=== PATIENT | male | born 1930 | race Caucasian/White ===

== ENCOUNTER 2017-03-02 22:14 | Inpatient (IN) | payer MEDICARE, OTHER, MEDICAID ==
[2017-03-02] MEDS ORDERED: Sodium Chloride 0.9% 10 ML Syringe FLUSH PRN (22:21)
[2017-03-02] MEDS ORDERED: Sodium Chloride 0.9% 1,000 ML IV SCH (22:30)
[2017-03-02] MEDS ORDERED: Levofloxacin/Dextrose 5%-Water 750 MG in Premix Bag 1 BAG IV ONE (22:31)
[2017-03-03] MEDS ORDERED: Acetaminophen 325 MG Tab PO ONE (00:03)
--- NOTE | 2017-03-03 00:04 | EDM.PDOC ---
ED HPI GENERAL MEDICAL PROBLEM - General Chief Complaint: Fever Stated Complaint: [facility] Time Seen by Provider: 03/02/17 22:17 Source of Information: Reports: [facility] records, Provider History Limitations: Reports: Altered Mental Status - History of Present Illness INITIAL COMMENTS - FREE TEXT/NARRATIVE: The patient presents from the [facility] with fever, cough, shortness of breath and low oxygen saturations. The [facility] had an outbreak of influenza last week and he was on tamiflu. For a couple days he has been more short of breath. 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 This evening he developed more of a cough, shortness of breath and his fever was 101. He was sent by ambulance. The patient is sleepy and he does not answer my questions. Onset: gradual Duration: Day(s): Severity: moderate Improves with: Reports: None Worsens with: Reports: None Associated Symptoms: Reports: cough, fever/chills, shortness of breath. 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 - Related Data Allergies Allergy/AdvReac Type Severity Reaction Status Date / Time No Known Allergies Allergy Verified 03/02/17 22:48 Home Meds: Home Meds Acetaminophen [Tylenol] 650 mg PO DAILY PRN 05/29/14 [History] Aspirin [Ecotrin] 1 tab PO DAILY 05/29/14 [History] Lovastatin 40 mg PO BEDTIME 05/29/14 [History] Sertraline [Zoloft] 12.5 tab PO DAILY 05/29/14 [History] Tamsulosin [Flomax] 0.4 mg PO BEDTIME 05/29/14 [History] Ammonia Solution, Strong/MSM [Penetran + Plus 1.5%] 1 applic TOP BID PRN [History] Cranberry Extract [Cranberry] 1 tab PO BID 03/02/17 [History] Furosemide [Lasix] 20 mg PO BID 03/02/17 [History] Memantine HCl [Namenda XR] 14 mg PO DAILY 03/02/17 [History] Oseltamivir [Tamiflu] 75 mg PO DAILY 03/02/17 [History] Sennosides [Senna] 2 tab PO DAILY PRN 03/02/17 [History] Past Medical History HEENT History: Reports: Cataract Cardiovascular History: Reports: High cholesterol, Hypertension Gastrointestinal History: Reports: Chronic constipation, Diverticulosis, GERD Psychiatric History: Reports: Anxiety, Dementia, Other (see below) Other Psychiatric History: insomnia Social & Family History - Tobacco Use Smoking Status *Q: Unknown Ever Smoked Second Hand Smoke Exposure: No - Alcohol Use Days Per Week of Alcohol Use: 0 - Recreational Drug Use Recreational Drug Use: No - Living Situation & Occupation Living situation: Reports: extended care facility ED ROS GENERAL - Review of Systems Review Of Systems: Unable To Obtain ED EXAM, GENERAL - Physical Exam Exam: See Below Exam Limited By: Altered Mental Status General Appearance: Other (He is sleepy) Ears: Normal External Exam Nose: Normal Inspection Throat/Mouth: Other (Dry mucus membranes) Head: Atraumatic, Normocephalic Neck: Normal Inspection Respiratory/Chest: No Respiratory Distress, Decreased Breath Sounds, Rhonchi Cardiovascular: Regular Rate, Rhythm, No Edema, No Murmur GI/Abdominal: Soft, Non-Tender, No Organomegaly, No Mass Extremities: Normal Inspection Neurological: Other (Sleepy but he will open his eyes when I talk to him. ) Course - Vital Signs Last Recorded V/S: Last Vital Signs Temp 102.6 F H 03/02/17 22:39 Pulse 89 03/02/17 22:39 Resp 36 H 03/02/17 22:39 BP 111/82 03/02/17 22:39 Pulse Ox 90 L 03/02/17 22:39 - Orders/Labs/Meds Orders: Active Orders 24 hr Category Date Time Status Patient Status [ADT] Routine ADT 03/03/17 00:23 Ordered Cardiac Monitoring [RC] . DIRECTED Care 03/02/17 22:22 Active Oxygen Therapy [RC] PRN Care 03/02/17 22:22 Active Peripheral IV Care [RC] . DIRECTED Care 03/02/17 22:23 Active Chest 1V Frontal [CR] Stat Exams 03/02/17 22:29 Taken CULTURE BLOOD [BC] Stat Lab 03/02/17 22:40 Received CULTURE BLOOD [BC] Stat Lab 03/02/17 22:55 Received Sodium Chloride 0.9% [Normal Saline] 1,000 ml Med 03/02/17 22:30 Active IV .BOLUS Sodium Chloride 0.9% [Saline Flush] Med 03/02/17 22:21 Active 10 ml FLUSH ASDIRECTED PRN Blood Culture x2 Reflex Set [OM.PC] Stat Ot 03/02/17 22:31 Ordered Peripheral IV Insertion Adult [OM.PC] Stat Ot 03/02/17 22:21 Ordered Medication Orders Sodium Chloride (Normal Saline) 1,000 mls @ 1,000 mls/hr IV .BOLUS CAROLYN Last Admin: 03/02/17 23:07 Dose: 1,000 mls/hr Sodium Chloride (Saline Flush) 10 ml FLUSH ASDIRECTED PRN PRN Reason: Keep Vein Open Last Admin: 03/02/17 23:14 Dose: 10 ml Labs: Laboratory Tests 03/02/17 03/02/17 03/02/17 Range/Units 22:36 22:40 22:40 WBC 9.50 H (4.23-9.07) K/mm3 RBC 5.16 (4.63-6.08) M/mm3 Hgb 14.6 (13.7-17.5) gm/L Hct 45.6 (40.1-51.0) % MCV 88.4 (79.0-92.2) fl MCH 28.3 (25.7-32.2) pg MCHC 32.0 L (32.2-35.5) g/dl RDW Std Deviation 44.0 H (35.1-43.9) fL Plt Count 97 L (163-337) K/mm3 MPV 12.2 (9.4-12.3) fl Neut % (Auto) 69.1 H (34.0-67.9) % Lymph % (Auto) 19.5 L (21.8-53.1) % Patrick % (Auto) 10.2 (5.3-12.2) % Eos % (Auto) 0.6 L (0.8-7.0) Baso % (Auto) 0.5 (0.1-1.2) % Neut # (Auto) 6.56 H (1.78-5.38) K/mm3 Lymph # (Auto) 1.85 (1.32-3.57) K/mm3 Patrick # (Auto) 0.97 H (0.30-0.82) K/mm3 Eos # (Auto) 0.06 (0.04-0.54) K/mm3 Baso # (Auto) 0.05 (0.01-0.08) K/mm3 Manual Slide Review Abnormal smear Sodium 156 H (136-145) mEq/L Potassium 4.0 (3.5-5.1) mEq/L Chloride 121 H (98-107) mEq/L Carbon Dioxide 25 (21-32) mEq/L Anion Gap 14.0 (5-15) BUN 34 H (7-18) mg/dL Creatinine 1.3 (0.7-1.3) mg/dL Est Cr Clr Drug Dosing TNP Estimated GFR (MDRD) 53 (>60) mL/min BUN/Creatinine Ratio 26.2 H (14-18) Glucose 274 H (83-115) mg/dL Lactic Acid (0.4-2.0) mmol/L Calcium 8.0 L (8.5-10.1) mg/dL Total Bilirubin 0.6 (0.2-1.0) mg/dL AST 21 (15-37) U/L ALT 31 (16-63) U/L Alkaline Phosphatase 53 (46-116) U/L Total Protein 6.9 (6.4-8.2) g/dl Albumin 3.1 L (3.4-5.0) g/dl Globulin 3.8 gm/dL Albumin/Globulin Ratio 0.8 L (1-2) Urine Color Yellow (Yellow) Urine Appearance Clear (Clear) Urine pH 5.5 (5.0-8.0) Ur Specific [place] > or = 1.030 (1.005-1.030) Urine Protein 2+ H (Negative) Urine Glucose (UA) Trace H (Negative) Urine Ketones Negative (Negative) Urine Occult Blood Trace-lysed H (Negative) Urine Nitrite Negative (Negative) Urine Bilirubin Negative (Negative) Urine Urobilinogen 0.2 (0.2-1.0) Ur Leukocyte Esterase Negative (Negative) Urine RBC Not seen (0-5) /hpf Urine WBC 0-5 (0-5) /hpf Ur Epithelial Cells Not seen (0-5) /hpf Urine Bacteria Few (FEW) /hpf Urine Mucus Few (FEW) /hpf 03/02/17 Range/Units 22:40 WBC (4.23-9.07) K/mm3 RBC (4.63-6.08) M/mm3 Hgb (13.7-17.5) gm/L Hct (40.1-51.0) % MCV (79.0-92.2) fl MCH (25.7-32.2) pg MCHC (32.2-35.5) g/dl RDW Std Deviation (35.1-43.9) fL Plt Count (163-337) K/mm3 MPV (9.4-12.3) fl Neut % (Auto) (34.0-67.9) % Lymph % (Auto) (21.8-53.1) % Patrick % (Auto) (5.3-12.2) % Eos % (Auto) (0.8-7.0) Baso % (Auto) (0.1-1.2) % Neut # (Auto) (1.78-5.38) K/mm3 Lymph # (Auto) (1.32-3.57) K/mm3 Patrick # (Auto) (0.30-0.82) K/mm3 Eos # (Auto) (0.04-0.54) K/mm3 Baso # (Auto) (0.01-0.08) K/mm3 Manual Slide Review Sodium (136-145) mEq/L Potassium (3.5-5.1) mEq/L Chloride (98-107) mEq/L Carbon Dioxide (21-32) mEq/L Anion Gap (5-15) BUN (7-18) mg/dL Creatinine (0.7-1.3) mg/dL Est Cr Clr Drug Dosing Estimated GFR (MDRD) (>60) mL/min BUN/Creatinine Ratio (14-18) Glucose (83-115) mg/dL Lactic Acid 1.6 (0.4-2.0) mmol/L Calcium (8.5-10.1) mg/dL Total Bilirubin (0.2-1.0) mg/dL AST (15-37) U/L ALT (16-63) U/L Alkaline Phosphatase (46-116) U/L Total Protein (6.4-8.2) g/dl Albumin (3.4-5.0) g/dl Globulin gm/dL Albumin/Globulin Ratio (1-2) Urine Color (Yellow) Urine Appearance (Clear) Urine pH (5.0-8.0) Ur Specific [place] (1.005-1.030) Urine Protein (Negative) Urine Glucose (UA) (Negative) Urine Ketones (Negative) Urine Occult Blood (Negative) Urine Nitrite (Negative) Urine Bilirubin (Negative) Urine Urobilinogen (0.2-1.0) Ur Leukocyte Esterase (Negative) Urine RBC (0-5) /hpf Urine WBC (0-5) /hpf Ur Epithelial Cells (0-5) /hpf Urine Bacteria (FEW) /hpf Urine Mucus (FEW) /hpf Meds: Medications Generic Name Dose Route Start Last Admin Trade Name Freq PRN Reason Stop Dose Admin Sodium Chloride 1,000 mls @ 1,000 mls/hr 03/02/17 22:30 03/02/17 23:07 Normal Saline IV 1,000 mls/hr .BOLUS CAROLYN Administration Sodium Chloride 10 ml 03/02/17 22:21 03/02/17 23:14 Saline Flush FLUSH 10 ml ASDIRECTED PRN Administration Keep Vein Open Discontinued Medications Generic Name Dose Route Start Last Admin Trade Name Freq PRN Reason Stop Dose Admin Acetaminophen 975 mg 03/03/17 00:03 Tylenol PO 03/03/17 00:04 NOW ONE Levofloxacin/Dextrose 750 mg/ 150 mls @ 100 mls/hr 03/02/17 22:31 03/02/17 23 :07 Premix IV 03/03/17 00:00 100 mls/hr ONETIME ONE Administration - Re-Assessments/Exams Free Text/Narrative Re-Assessment/Exam: 03/03/17 00:04 I ordered an IV NS 500ml bolus, CXR, labs, blood cultures, UA and levaquin 750mg IV after the blood cultures. 03/03/17 00:24 His WBC is slightly elevated at 9.5. His CXR does not show an infiltrate at this time. His Na is 156. His K was normal at 4. His creatinine was normal at 1.3. His glucose was elevated at 274. His UA shows no UTI. His influenza was negative. I have blood cultures ordered. I feel he has pneumonia with his cough, fever, and low oxygen saturations. He also has sepsis. I called Dr Maguire and she agreed to the admission. 03/03/17 00:27 I ordered some tylenol for his fever. Departure - Departure Time of Disposition: 00:30 Disposition: Admitted As Inpatient 68 Condition: serious Clinical Impression: Hypoxia, Hypernatremia Pneumonia Qualifiers: Pneumonia type: due to unspecified organism Laterality: unspecified laterality Lung location: unspecified part of lung Qualified Code(s): J18.9 - Pneumonia, unspecified organism Sepsis Qualifiers: Sepsis type: sepsis due to unspecified organism Qualified Code(s): A41.9 - Sepsis, unspecified organism - Discharge Information Forms: ED Department Discharge - My Orders Last 24 Hours: My Active Orders 03/02/17 22:21 Sodium Chloride 0.9% [Saline Flush] 10 ml FLUSH ASDIRECTED PRN Peripheral IV Insertion Adult [OM.PC] Stat 03/02/17 22:22 Cardiac Monitoring [RC] . DIRECTED Oxygen Therapy [RC] PRN 03/02/17 22:23 Peripheral IV Care [RC] . DIRECTED 03/02/17 22:29 Chest 1V Frontal [CR] Stat 03/02/17 22:30 Sodium Chloride 0.9% [Normal Saline] 1,000 ml IV .BOLUS 03/02/17 22:31 Blood Culture x2 Reflex Set [OM.PC] Stat 03/02/17 22:40 CULTURE BLOOD [BC] Stat 03/02/17 22:55 CULTURE BLOOD [BC] Stat 03/03/17 00:23 Patient Status [ADT] Routine - Assessment/Plan Last 24 Hours: My Active Orders 03/02/17 22:21 Sodium Chloride 0.9% [Saline Flush] 10 ml FLUSH ASDIRECTED PRN Peripheral IV Insertion Adult [OM.PC] Stat 03/02/17 22:22 Cardiac Monitoring [RC] . DIRECTED Oxygen Therapy [RC] PRN 03/02/17 22:23 Peripheral IV Care [RC] . DIRECTED 03/02/17 22:29 Chest 1V Frontal [CR] Stat 03/02/17 22:30 Sodium Chloride 0.9% [Normal Saline] 1,000 ml IV .BOLUS 03/02/17 22:31 Blood Culture x2 Reflex Set [OM.PC] Stat 03/02/17 22:40 CULTURE BLOOD [BC] Stat 03/02/17 22:55 CULTURE BLOOD [BC] Stat 03/03/17 00:23 Patient Status [ADT] Routine
[2017-03-03] MEDS ORDERED: Acetaminophen 325 MG Supp RECTAL STA (00:25)
[2017-03-03] MEDS ORDERED: Sodium Chloride 0.9% 1,000 ML IV SCH (00:30)
[2017-03-03] MEDS: Dextrose 5% in Water 1,000 ML IV SCH ×3 (02:52→23:46)
[2017-03-03] MEDS: Albuterol/Ipratropium 3.0-0.5 MG/3 ML Neb Soln NEB SCH ×4 (06:21→20:24)
--- NOTE | 2017-03-03 07:02 | CR ---
Chest: Portable view of the chest was obtained. Comparison: Previous chest x-ray of 10/27/14. Heart size appears within normal limits. Tortuous thoracic aorta is noted. Mild density is noted within the left mid to lower lung believed to represent pleural thickening/calcification seen en face. No acute infiltrates are seen. Old healed left mid to lower rib fracture is noted. Impression: 1. Incidental findings. Nothing acute is identified on portable chest x-ray. Diagnostic code #2
[2017-03-03] MEDS: Enoxaparin 40 MG/0.4 ML Syringe SUBCUT SCH (09:00)
[2017-03-03] MEDS: Oseltamivir 30 MG Cap PO SCH (09:01)
--- NOTE | 2017-03-03 13:18 | PCM.HP ---
H&P History of Present Illness - General Date of Service: 03/03/17 Admit Problem/Dx: Admission Diagnosis/Problem Admission Diagnosis/Problem Pneumonia Source of Information: Provider History Limitations: Reports: No Limitations - History of Present Illness Initial Comments - Free Text/Narative: 86 year old male, [place] resident presents lethargic, and febrile. Temp was 102.6F , pulse ox 90%; UA documented a sp gr, 1.030 without nitrites or LE. Additional abnormal labs include a sodium of 156. D% has been started for free water, the patient is hyperglycemic, however this would document his glucose intolerance; he had trace glucose in his UA before imitation of his glucose. An empiric dose of Levoquin was given for possible PNA. Onset of Symptoms: Reports: Unknown/Unsure Duration of Symptoms: Reports: Day(s):, Getting Worse Location: Reports: Chest, Generalized Severity: Moderate Improves with: Reports: Medication Worsens with: Reports: None Context: Reports: Sick Contact Associated Symptoms: Reports: Confusion, Fever/Chills, Malaise - Related Data Allergies/Adverse Reactions: Allergies Allergy/AdvReac Type Severity Reaction Status Date / Time No Known Allergies Allergy Verified 03/02/17 22:48 Home Medications: Home Meds Acetaminophen [Tylenol] 650 mg PO DAILY PRN 05/29/14 [History] Aspirin [Ecotrin] 1 tab PO DAILY 05/29/14 [History] Lovastatin 40 mg PO BEDTIME 05/29/14 [History] Sertraline [Zoloft] 12.5 tab PO DAILY 05/29/14 [History] Tamsulosin [Flomax] 0.4 mg PO BEDTIME 05/29/14 [History] Ammonia Solution, Strong/MSM [Penetran + Plus 1.5%] 1 applic TOP BID PRN [History] Cranberry Extract [Cranberry] 1 tab PO BID 03/02/17 [History] Furosemide [Lasix] 20 mg PO BID 03/02/17 [History] Memantine HCl [Namenda XR] 14 mg PO DAILY 03/02/17 [History] Oseltamivir [Tamiflu] 75 mg PO DAILY 03/02/17 [History] Sennosides [Senna] 2 tab PO DAILY PRN 03/02/17 [History] Past Medical History HEENT History: Reports: Cataract Cardiovascular History: Reports: High Cholesterol, Hypertension Gastrointestinal History: Reports: Chronic Constipation, Diverticulosis, GERD Genitourinary History: Reports: Other (See Below) Other Genitourinary History: urinary obstruction Neurological History: Reports: Other (See Below) Other Neuro History: dementia Psychiatric History: Reports: Anxiety, Dementia, Other (See Below) Other Psychiatric History: insomnia 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 Social & Family History - Family History Family Medical History: Noncontributory - Tobacco Use Smoking Status *Q: Unknown Ever Smoked Second Hand Smoke Exposure: No - Alcohol Use Days Per Week of Alcohol Use: 0 - Recreational Drug Use Recreational Drug Use: No - Living Situation & Occupation Living situation: Reports: Extended Care Facility H&P Review of Systems - Review of Systems: Review Of Systems: See Below General: Reports: Fever, Malaise, Weakness HEENT: Reports: No Symptoms Pulmonary: Reports: Shortness of Breath Cardiovascular: Reports: No Symptoms Gastrointestinal: Reports: No Symptoms Genitourinary: Reports: No Symptoms Musculoskeletal: Reports: No Symptoms Skin: Reports: No Symptoms Psychiatric: Reports: Confusion Neurological: Reports: No Symptoms Hematologic/Lymphatic: Reports: No Symptoms Immunologic: Reports: No Symptoms Exam - Exam Exam: See Below - Vital Signs Vital Signs: Last Vital Signs Temp 36.5 C 03/03/17 09:00 Pulse 81 03/03/17 09:00 Resp 28 H 03/03/17 09:00 BP 142/68 H 03/03/17 09:00 Pulse Ox 96 03/03/17 09:00 Weight: 56.835 kg - Exam Quality Assessment: Supplemental Oxygen, DVT Prophylaxis General: Alert, Oriented (self) HEENT: Conjunctiva Clear, Nares Patent, Normal Nasal Septum, Pupils Equal, Pupils Reactive Neck: Supple, Trachea Midline Lungs: Normal Respiratory Effort, Decreased Breath Sounds, Rhonchi Cardiovascular: Regular Rate Abdomen: Normal Bowel Sounds, Soft (Male) Exam: Deferred Rectal (Males) Exam: Deferred Back Exam: Normal Inspection Extremities: Normal Pulses Skin: Warm Neurological: Cranial Nerves Intact Neuro Extensive - Mental Status: Alert, Normal Mood/Affect Neuro Extensive - Motor, Sensory, Reflexes: CN II-XII Intact Psychiatric: Alert - Patient Data Lab Results last 24 hrs: Laboratory Results - last 24 hr 03/03/17 03/03/17 03/03/17 Range/Units 04:03 04:03 04:03 WBC 9.11 H (4.23-9.07) K/mm3 RBC 5.04 (4.63-6.08) M/mm3 Hgb 14.1 (13.7-17.5) gm/L Hct 44.7 (40.1-51.0) % MCV 88.7 (79.0-92.2) fl MCH 28.0 (25.7-32.2) pg MCHC 31.5 L (32.2-35.5) g/dl RDW Std Deviation 44.1 H (35.1-43.9) fL Plt Count 97 L (163-337) K/mm3 MPV 12.4 H (9.4-12.3) fl Neutrophils % (Manual) 69 H (40-60) % Band Neutrophils % 1 (0-10) % Lymphocytes % (Manual) 25 (20-40) % Atypical Lymphs % 0 % Monocytes % (Manual) 3 (2-10) % Eosinophils % (Manual) 1 (0.8-7.0) % Basophils % (Manual) 1 (0.2-1.2) Platelet Estimate See note RBC Morph Comment Normal Sodium 154 H (136-145) mEq/L Potassium 4.2 (3.5-5.1) mEq/L Chloride 121 H (98-107) mEq/L Carbon Dioxide 25 (21-32) mEq/L Anion Gap 12.2 (5-15) BUN 31 H (7-18) mg/dL Creatinine 1.1 (0.7-1.3) mg/dL Est Cr Clr Drug Dosing 40.19 mL/min Estimated GFR (MDRD) > 60 (>60) mL/min BUN/Creatinine Ratio 28.2 H (14-18) Glucose 313 H (83-115) mg/dL POC Glucose (83-110) mg/dL Hemoglobin A1c (4.50-6.20) % Calcium 7.7 L (8.5-10.1) mg/dL C-Reactive Protein 1.0 (<1.0) mg/dL B-Natriuretic Peptide 107 H (0-100) pg/mL MRSA (PCR) 03/03/17 03/03/17 03/03/17 Range/Units 04:03 04:30 11:45 WBC (4.23-9.07) K/mm3 RBC (4.63-6.08) M/mm3 Hgb (13.7-17.5) gm/L Hct (40.1-51.0) % MCV (79.0-92.2) fl MCH (25.7-32.2) pg MCHC (32.2-35.5) g/dl RDW Std Deviation (35.1-43.9) fL Plt Count (163-337) K/mm3 MPV (9.4-12.3) fl Neutrophils % (Manual) (40-60) % Band Neutrophils % (0-10) % Lymphocytes % (Manual) (20-40) % Atypical Lymphs % % Monocytes % (Manual) (2-10) % Eosinophils % (Manual) (0.8-7.0) % Basophils % (Manual) (0.2-1.2) Platelet Estimate RBC Morph Comment Sodium (136-145) mEq/L Potassium (3.5-5.1) mEq/L Chloride (98-107) mEq/L Carbon Dioxide (21-32) mEq/L Anion Gap (5-15) BUN (7-18) mg/dL Creatinine (0.7-1.3) mg/dL Est Cr Clr Drug Dosing mL/min Estimated GFR (MDRD) (>60) mL/min BUN/Creatinine Ratio (14-18) Glucose (83-115) mg/dL POC Glucose 289 H (83-110) mg/dL Hemoglobin A1c 9.10 H (4.50-6.20) % Calcium (8.5-10.1) mg/dL C-Reactive Protein (<1.0) mg/dL B-Natriuretic Peptide (0-100) pg/mL MRSA (PCR) Positive H Result Diagrams: 03/03/17 04:03 03/03/17 04:03 *Q Meaningful Use (ADM) - VTE *Q VTE Criteria *Q: - Stroke *Q Stroke Criteria *Q: - AMI *Q AMI Criteria *Q: - Problem List (1) Hypernatremia SNOMED Code(s): 38251454 ICD Code: E87.0 - HYPEROSMOLALITY AND HYPERNATREMIA Status: Acute Current Visit: Yes (2) Dehydration SNOMED Code(s): 88797903 ICD Code: E86.0 - DEHYDRATION Status: Acute Current Visit: No (3) Fever SNOMED Code(s): 416854899 ICD Code: R50.9 - FEVER, UNSPECIFIED Status: Acute Current Visit: No (4) Hypotension, Low blood pressure SNOMED Code(s): 86272133 ICD Code: I95.9 - HYPOTENSION, UNSPECIFIED Status: Acute Current Visit: No Problem List Initiated/Reviewed/Updated: Yes Orders Last 24hrs: Active Orders 24 hr Category Date Time Status Accu Check [Blood Glucose Check, Bedside] [] Q4HR Care 03/03/17 08:00 Active HOB [Head of Bed Elevation] [RC] ASDIRECTED Care 03/03/17 01:27 Active Oxygen Therapy [RC] ASDIRECTED Care 03/03/17 01:27 Active RT Aerosol Therapy [RC] ASDIRECTED Care 03/03/17 01:28 Active Consult to Speech Language Pathology [WELFARE CASE WORKER Evaluation Cons 03/03/17 01:25 Active and Treatment] [CONS] Routine NPO [Nothing Per Oral Diet] [DIET] Diet 03/03/17 Breakfast Active CBC W/O DIFF,HEMOGRAM [HEME] MOTH@0700 Lab 03/06/17 07:00 Ordered CBC W/O DIFF,HEMOGRAM [HEME] MOTH@0700 Lab 03/09/17 07:00 Ordered CBC W/O DIFF,HEMOGRAM [HEME] MOTH@0700 Lab 03/13/17 07:00 Ordered CBC W/O DIFF,HEMOGRAM [HEME] MOTH@0700 Lab 03/16/17 07:00 Ordered CBC W/O DIFF,HEMOGRAM [HEME] MOTH@0700 Lab 03/20/17 07:00 Ordered CBC W/O DIFF,HEMOGRAM [HEME] MOTH@0700 Lab 03/23/17 07:00 Ordered Albuterol/Ipratropium [DuoNeb 3.0-0.5 MG/3 ML] Med 03/03/17 06:00 Active 3 ml NEB QIDRT Azithromycin [Zithromax] 500 mg Med 03/03/17 13:30 Active Sodium Chloride 0.9% [Normal Saline] 250 ml IV Q24H Dextrose 5% in Water 1,000 ml Med 03/03/17 01:30 Active IV ASDIRECTED Enoxaparin [Lovenox] Med 03/03/17 09:00 Active 40 mg SUBCUT DAILY Oseltamivir [Tamiflu] Med 03/03/17 09:00 Active 30 mg PO DAILY cefTRIAXone [Rocephin] 1 gm Med 03/03/17 13:00 Active Sodium Chloride 0.9% [Normal Saline] 100 ml IV Q24H Medication Orders Albuterol/Ipratropium (Duoneb 3.0-0.5 Mg/3 Ml) 3 ml NEB QIDRT [facility] Last Admin: 03/03/17 10:49 Dose: 3 ml Admin: 03/03/17 06:21 Dose: 3 ml Enoxaparin Sodium (Lovenox) 40 mg SUBCUT DAILY [facility] Last Admin: 03/03/17 09:00 Dose: 40 mg Dextrose/Water (Dextrose 5% In Water) 1,000 mls @ 100 mls/hr IV ASDIRECTED [facility] Last Admin: 03/03/17 02:52 Dose: 100 mls/hr Azithromycin 500 mg/ Sodium (Chloride) 250 mls @ 250 mls/hr IV Q24H [facility] Ceftriaxone Sodium 1 gm/ (Sodium Chloride) 100 mls @ 200 mls/hr IV Q24H CAROLYN Oseltamivir Phosphate (Tamiflu) 30 mg PO DAILY [facility] Last Admin: 03/03/17 09:01 Dose: 30 mg Sodium Chloride (Saline Flush) 10 ml FLUSH ASDIRECTED PRN PRN Reason: Keep Vein Open Last Admin: 03/02/17 23:14 Dose: 10 ml Assessment/Plan Comment:: Impression: AMS, unclear etiology, likely hypernatremia cf infection; temp 102.6F in the ED. BCs have been drawn Can not exclude an infection Acute exposure to a viral illness in the NH. Chronic HTN Hyperlipidemia Anxiety Dementia Plan: IVF, D5 for free water Hold home meds Keep O2, Sat>92% Resp panel work up Empiric ATB, Zithromax, and Rocephin Renal dose Tamiflu DVT/GI prophylaxis
[2017-03-03] MEDS: cefTRIAXone 1 GM in Sodium Chloride 0.9% 100 ML IV SCH (13:28)
[2017-03-03] MEDS: Azithromycin 500 MG in Sodium Chloride 0.9% 250 ML IV SCH (14:18)
[2017-03-03] MEDS ORDERED: Bisacodyl 10 MG Supp RECTAL ONE (15:15)
[2017-03-03] MEDS ORDERED: Sennosides 8.6 MG Tab PO PRN (15:19)
[2017-03-03] MEDS: Tamsulosin 0.4 MG Cap.ER PO SCH (20:55)
[2017-03-04] MEDS: Albuterol/Ipratropium 3.0-0.5 MG/3 ML Neb Soln NEB SCH ×4 (06:18→20:30)
[2017-03-04] MEDS: Oseltamivir 30 MG Cap PO SCH (08:07)
[2017-03-04] MEDS: Sertraline 25 MG Tab PO SCH (08:07)
[2017-03-04] MEDS: MEMANTINE HCL 14 MG PO SCH (08:07)
[2017-03-04] MEDS: Saccharomyces Boulardii (Probiotic) 250 MG Cap PO SCH (08:07)
[2017-03-04] MEDS: Aspirin 81 MG Tab.EC PO SCH (08:07)
[2017-03-04] MEDS: Enoxaparin 40 MG/0.4 ML Syringe SUBCUT SCH (08:07)
[2017-03-04] MEDS: cefTRIAXone 1 GM in Sodium Chloride 0.9% 100 ML IV SCH (13:50)
[2017-03-04] MEDS: Azithromycin 500 MG in Sodium Chloride 0.9% 250 ML IV SCH (13:50)
--- NOTE | 2017-03-04 13:53 | PCM.PN ---
- General Info Date of Service: 03/04/17 Functional Status: Reports: tolerating diet (changed), urinating - Review of Systems General: Reports: No Symptoms HEENT: Reports: no symptoms Pulmonary: Reports: no symptoms Cardiovascular: Reports: No Symptoms Gastrointestinal: Reports: No symptoms Genitourinary: Reports: no symptoms Musculoskeletal: Reports: no symptoms Skin: Reports: no symptoms Neurological: Reports: No Symptoms Psychiatric: Reports: no symptoms - Patient Data Vitals - most recent: Last Vital Signs Temp 36.6 C 03/04/17 08:18 Pulse 87 03/04/17 08:18 Resp 20 03/04/17 08:18 BP 116/62 03/04/17 08:18 Pulse Ox 94 L 03/04/17 10:42 Weight - most recent: 57.878 kg I&O - last 24 hours: Intake & Output 03/03/17 03/04/17 03/04/17 22:59 06:59 14:59 Intake Total 1269 561 Balance 1269 561 Lab Results last 24 hrs: Laboratory Results - last 24 hr 03/03/17 03/03/17 03/03/17 Range/Units 16:56 19:05 19:05 Sodium 148 H (136-145) mEq/L Potassium 4.0 (3.5-5.1) mEq/L Chloride 113 H (98-107) mEq/L Carbon Dioxide 24 (21-32) mEq/L Anion Gap 15.0 (5-15) BUN 21 H (7-18) mg/dL Creatinine 1.0 (0.7-1.3) mg/dL Est Cr Clr Drug Dosing 44.21 mL/min Estimated GFR (MDRD) > 60 (>60) mL/min BUN/Creatinine Ratio 21.0 H (14-18) Glucose 321 H (83-115) mg/dL POC Glucose 239 H (83-110) mg/dL Hemoglobin A1c 9.10 H (4.50-6.20) % Calcium 7.6 L (8.5-10.1) mg/dL Magnesium (1.8-2.4) mg/dl Mycoplasma pneumon IgM Negative (NEGATIVE) 03/03/17 03/04/17 Range/Units 20:56 04:22 Sodium 145 (136-145) mEq/L Potassium 4.0 (3.5-5.1) mEq/L Chloride 111 H (98-107) mEq/L Carbon Dioxide 24 (21-32) mEq/L Anion Gap 14.0 (5-15) BUN 19 H (7-18) mg/dL Creatinine 1.0 (0.7-1.3) mg/dL Est Cr Clr Drug Dosing 45.02 mL/min Estimated GFR (MDRD) > 60 (>60) mL/min BUN/Creatinine Ratio 19.0 H (14-18) Glucose 296 H (83-115) mg/dL POC Glucose 296 H (83-110) mg/dL Hemoglobin A1c (4.50-6.20) % Calcium 7.8 L (8.5-10.1) mg/dL Magnesium 2.3 (1.8-2.4) mg/dl Mycoplasma pneumon IgM (NEGATIVE) Med Orders - Current: Current Medications Albuterol/Ipratropium (Duoneb 3.0-0.5 Mg/3 Ml) 3 ml NEB QIDRT [facility] Last Admin: 03/04/17 10:41 Dose: 3 ml Aspirin (Halfprin) 81 mg PO DAILY [facility] Last Admin: 03/04/17 08:07 Dose: 81 mg Enoxaparin Sodium (Lovenox) 40 mg SUBCUT DAILY [facility] Last Admin: 03/04/17 08:07 Dose: 40 mg Azithromycin 500 mg/ Sodium (Chloride) 250 mls @ 250 mls/hr IV Q24H [facility] Last Admin: 03/04/17 13:50 Dose: 250 mls/hr Ceftriaxone Sodium 1 gm/ (Sodium Chloride) 100 mls @ 200 mls/hr IV Q24H [facility] Last Admin: 03/04/17 13:50 Dose: 200 mls/hr Oseltamivir Phosphate (Tamiflu) 30 mg PO DAILY [facility] Last Admin: 03/04/17 08:07 Dose: 30 mg Memantine Hcl 14 Mg (Xr) 0 each PO DAILY [facility] Last Admin: 03/04/17 08:07 Dose: Not Given Saccharomyces Boulardii (Florastor) 500 mg PO DAILY [facility] Last Admin: 03/04/17 08:07 Dose: 500 mg Senna (Senna) 17.2 mg PO DAILY PRN PRN Reason: Constipation Sertraline HCl (Zoloft) 12.5 mg PO DAILY [facility] Last Admin: 03/04/17 08:07 Dose: 12.5 mg Sodium Chloride (Saline Flush) 10 ml FLUSH ASDIRECTED PRN PRN Reason: Keep Vein Open Last Admin: 03/02/17 23:14 Dose: 10 ml Tamsulosin HCl (Flomax) 0.4 mg PO BEDTIME [facility] Last Admin: 03/03/17 20:55 Dose: 0.4 mg Discontinued Medications Acetaminophen (Tylenol) 975 mg PO NOW ONE Stop: 03/03/17 00:04 Last Admin: 03/03/17 00:32 Dose: Not Given Acetaminophen (Tylenol) 975 mg RECTAL NOW STA Stop: 03/03/17 00:26 Last Admin: 03/03/17 00:31 Dose: 975 mg Bisacodyl (Dulcolax) 10 mg RECTAL ONETIME ONE Stop: 03/03/17 15:16 Last Admin: 03/03/17 15:28 Dose: 10 mg Levofloxacin/Dextrose 750 mg/ (Premix) 150 mls @ 100 mls/hr IV ONETIME ONE Stop: 03/03/17 00:00 Last Admin: 03/02/17 23:07 Dose: 100 mls/hr Sodium Chloride (Normal Saline) 1,000 mls @ 1,000 mls/hr IV .BOLUS [facility] Last Admin: 03/02/17 23:07 Dose: 1,000 mls/hr Sodium Chloride (Normal Saline) 1,000 mls @ 150 mls/hr IV ASDIRECTED CAROLYN Dextrose/Water (Dextrose 5% In Water) 1,000 mls @ 70 mls/hr IV ASDIRECTED [facility] Last Admin: 03/03/17 23:46 Dose: 100 mls/hr - Exam Quality Assessment: supplemental oxygen, DVT prophylaxis General: alert, oriented, cooperative, no acute distress HEENT: Pupils equal, Pupils reactive, EOMI Neck: supple, trachea midline, no JVD Lungs: Normal respiratory effort Cardiovascular: Regular Rate Abdomen: bowel sounds present, soft, no tenderness, no distension (Male) Exam: Deferred Back Exam: Normal Inspection Extremities: normal pulses Skin: warm Neurological: no new focal deficit Psy/Mental Status: alert - Problem List & Annotations (1) Hypernatremia SNOMED Code(s): 81357891 Code(s): E87.0 - HYPEROSMOLALITY AND HYPERNATREMIA Status: Acute Current Visit: Yes (2) Dehydration SNOMED Code(s): 14871451 Code(s): E86.0 - DEHYDRATION Status: Acute Current Visit: No (3) Fever SNOMED Code(s): 006789950 Code(s): R50.9 - FEVER, UNSPECIFIED Status: Acute Current Visit: No (4) Hypotension, Low blood pressure SNOMED Code(s): 85796092 Code(s): I95.9 - HYPOTENSION, UNSPECIFIED Status: Acute Current Visit: No - Problem List Review Problem List Initiated/Reviewed/Updated: Yes - My Orders Last 24 Hours: My Active Orders 03/03/17 13:00 cefTRIAXone [Rocephin] 1 gm Sodium Chloride 0.9% [Normal Saline] 100 ml IV Q24H 03/03/17 13:30 Azithromycin [Zithromax] 500 mg Sodium Chloride 0.9% [Normal Saline] 250 ml IV Q24H 03/03/17 15:15 STREP PNEUMONIAE ANTIGEN [MREF] Routine 03/03/17 15:18 Isolation [COMM] Routine 03/03/17 15:19 Sennosides [Senna] 17.2 mg PO DAILY PRN 03/03/17 15:21 Bedrest Bathroom Privileges [RC] ASDIRECTED 03/03/17 17:20 RESPIRATORY PANEL BY PCR [MREF] Routine 03/03/17 20:15 Accu Check [Blood Glucose Check, Bedside] [RC] BIDAC 03/03/17 20:39 Swallow Screen [Nursing Bedside Swallow Screen] [RC] ASDIRECTED 03/03/17 20:41 Aspiration Precautions [RC] ASDIRECTED 03/03/17 21:00 Tamsulosin [Flomax] 0.4 mg PO BEDTIME 03/04/17 02:16 Code Status [Resuscitation Status] Routine 03/04/17 09:00 Aspirin [Halfprin] 81 mg PO DAILY Patient's Own Medication [Ptom] 0 each PO DAILY Saccharomyces Boulardii [Florastor] 500 mg PO DAILY Sertraline [Zoloft] 12.5 mg PO DAILY 03/04/17 16:30 CBC WITH AUTO DIFF [HEME] Routine 03/04/17 Dinner Nothing Per Oral Diet [DIET] 03/05/17 05:00 BASIC METABOLIC PANEL,BMP [CHEM] DAILY MAGNESIUM [CHEM] DAILY 03/05/17 09:00 CXR [Chest 1V Frontal] [CR] Routine 03/06/17 05:00 BASIC METABOLIC PANEL,BMP [CHEM] DAILY CBC WITH AUTO DIFF [HEME] DAILY MAGNESIUM [CHEM] DAILY 03/06/17 07:00 CBC W/O DIFF,HEMOGRAM [HEME] MOTH@0700 03/07/17 05:00 BASIC METABOLIC PANEL,BMP [CHEM] DAILY CBC WITH AUTO DIFF [HEME] DAILY MAGNESIUM [CHEM] DAILY 03/08/17 05:00 CBC WITH AUTO DIFF [HEME] DAILY 03/09/17 07:00 CBC W/O DIFF,HEMOGRAM [HEME] MOTH@0700 03/13/17 07:00 CBC W/O DIFF,HEMOGRAM [HEME] MOTH@0700 03/16/17 07:00 CBC W/O DIFF,HEMOGRAM [HEME] MOTH@0700 03/20/17 07:00 CBC W/O DIFF,HEMOGRAM [HEME] MOTH@0700 03/23/17 07:00 CBC W/O DIFF,HEMOGRAM [HEME] MOTH@0700 - Plan Plan:: Impression: AMS, unclear etiology, likely hypernatremia, resolved. cf infection; temp 102.6F in the ED. BCs have been drawn Can not exclude an infection Acute exposure to a viral illness in the NH. Chronic HTN Hyperlipidemia Anxiety Dementia Plan: IVF, D5 for free water Hold home meds Keep O2, Sat>92% Resp panel work up Empiric ATB, Zithromax, and Rocephin Renal dose Tamiflu DVT/GI prophylaxis
--- NOTE | 2017-03-04 14:38 | CR ---
Chest x-ray: Portable view of the chest was obtained. Comparison: Previous chest x-ray 03/02/17. Heart size and mediastinum are within normal limits for portable technique. Incidental tortuous thoracic aorta is seen. Lucency is seen along the right inferior chest which is felt to be due to overlapping muscle artifact. Lungs are clear with no acute infiltrates. Small nodule is noted within the right upper lung most likely representing granuloma. Bony structures are osteopenic. Old healed left mid to lower rib fracture is seen. Impression: 1. Incidental findings. Nothing acute is appreciated on portable chest x-ray. Diagnostic code #2
[2017-03-04] MEDS: Tamsulosin 0.4 MG Cap.ER PO SCH (21:39)
[2017-03-05] MEDS: Albuterol/Ipratropium 3.0-0.5 MG/3 ML Neb Soln NEB SCH ×4 (06:06→20:49)
[2017-03-05] MEDS: Saccharomyces Boulardii (Probiotic) 250 MG Cap PO SCH (08:25)
[2017-03-05] MEDS: MEMANTINE HCL 14 MG PO SCH (08:26)
[2017-03-05] MEDS: Sertraline 25 MG Tab PO SCH (08:26)
[2017-03-05] MEDS: Oseltamivir 30 MG Cap PO SCH (08:26)
[2017-03-05] MEDS: Aspirin 81 MG Tab.EC PO SCH (08:26)
[2017-03-05] MEDS: Enoxaparin 40 MG/0.4 ML Syringe SUBCUT SCH (08:26)
--- NOTE | 2017-03-05 08:50 | CR ---
Chest: Portable view of the chest was obtained. Comparison: Previous chest x-ray of 03/04/17. Heart size is normal. Tortuous thoracic aorta is seen. Lung markings are mildly increased which appear chronic. No acute infiltrates are appreciated. Bony structures are osteopenic. Slight asymmetric density noted within the right midlung which is believed to be chronic. Old left sided rib fractures are seen. Impression: 1. Stable findings which are incidental. Nothing acute is appreciated. Diagnostic code #2
--- NOTE | 2017-03-05 11:01 | PCM.PN ---
- General Info Date of Service: 03/05/17 Functional Status: Reports: tolerating diet, urinating - Review of Systems General: Reports: Weakness HEENT: Reports: no symptoms Pulmonary: Reports: shortness of breath Cardiovascular: Reports: No Symptoms Gastrointestinal: Reports: No symptoms Genitourinary: Reports: no symptoms Musculoskeletal: Reports: no symptoms Skin: Reports: no symptoms Neurological: Reports: No Symptoms Psychiatric: Reports: no symptoms - Patient Data Vitals - most recent: Last Vital Signs Temp 37.1 C 03/05/17 08:24 Pulse 85 03/05/17 08:24 Resp 20 03/05/17 08:24 BP 110/65 03/05/17 08:24 Pulse Ox 94 L 03/05/17 09:45 Weight - most recent: 56.744 kg I&O - last 24 hours: Intake & Output 03/04/17 03/05/17 03/05/17 22:59 06:59 14:59 Intake Total 650 0 Output Total 1250 Balance -600 0 Lab Results last 24 hrs: Laboratory Results - last 24 hr 03/04/17 03/05/17 Range/Units 16:38 04:20 WBC 8.38 (4.23-9.07) K/mm3 RBC 4.57 L (4.63-6.08) M/mm3 Hgb 12.9 L (13.7-17.5) gm/L Hct 39.4 L (40.1-51.0) % MCV 86.2 (79.0-92.2) fl MCH 28.2 (25.7-32.2) pg MCHC 32.7 (32.2-35.5) g/dl RDW Std Deviation 40.9 (35.1-43.9) fL Plt Count 83 L (163-337) K/mm3 MPV 13.0 H (9.4-12.3) fl Neut % (Auto) 74.8 H (34.0-67.9) % Lymph % (Auto) 15.2 L (21.8-53.1) % Tillman % (Auto) 8.2 (5.3-12.2) % Eos % (Auto) 1.4 (0.8-7.0) Baso % (Auto) 0.2 (0.1-1.2) % Neut # (Auto) 6.26 H (1.78-5.38) K/mm3 Lymph # (Auto) 1.27 L (1.32-3.57) K/mm3 Tillman # (Auto) 0.69 (0.30-0.82) K/mm3 Eos # (Auto) 0.12 (0.04-0.54) K/mm3 Baso # (Auto) 0.02 (0.01-0.08) K/mm3 Manual Slide Review Abnormal smear Sodium 147 H (136-145) mEq/L Potassium 4.0 (3.5-5.1) mEq/L Chloride 113 H (98-107) mEq/L Carbon Dioxide 25 (21-32) mEq/L Anion Gap 13.0 (5-15) BUN 17 (7-18) mg/dL Creatinine 0.9 (0.7-1.3) mg/dL Est Cr Clr Drug Dosing 50.02 mL/min Estimated GFR (MDRD) > 60 (>60) mL/min BUN/Creatinine Ratio 18.9 H (14-18) Glucose 246 H (83-115) mg/dL Calcium 7.9 L (8.5-10.1) mg/dL Magnesium 2.3 (1.8-2.4) mg/dl Med Orders - Current: Current Medications Albuterol/Ipratropium (Duoneb 3.0-0.5 Mg/3 Ml) 3 ml NEB QIDRT [facility] Last Admin: 03/05/17 09:44 Dose: 3 ml Aspirin (Halfprin) 81 mg PO DAILY [facility] Last Admin: 03/05/17 08:26 Dose: 81 mg Enoxaparin Sodium (Lovenox) 40 mg SUBCUT DAILY [facility] Last Admin: 03/05/17 08:26 Dose: 40 mg Azithromycin 500 mg/ Sodium (Chloride) 250 mls @ 250 mls/hr IV Q24H [facility] Last Admin: 03/04/17 13:50 Dose: 250 mls/hr Ceftriaxone Sodium 1 gm/ (Sodium Chloride) 100 mls @ 200 mls/hr IV Q24H [facility] Last Admin: 03/04/17 13:50 Dose: 200 mls/hr Oseltamivir Phosphate (Tamiflu) 30 mg PO DAILY [facility] Last Admin: 03/05/17 08:26 Dose: 30 mg Memantine Hcl 14 Mg (Xr) 0 each PO DAILY [facility] Last Admin: 03/05/17 08:26 Dose: Not Given Saccharomyces Boulardii (Florastor) 500 mg PO DAILY [facility] Last Admin: 03/05/17 08:25 Dose: 500 mg Senna (Senna) 17.2 mg PO DAILY PRN PRN Reason: Constipation Sertraline HCl (Zoloft) 12.5 mg PO DAILY [facility] Last Admin: 03/05/17 08:26 Dose: 12.5 mg Sodium Chloride (Saline Flush) 10 ml FLUSH ASDIRECTED PRN PRN Reason: Keep Vein Open Last Admin: 03/02/17 23:14 Dose: 10 ml Tamsulosin HCl (Flomax) 0.4 mg PO BEDTIME [facility] Last Admin: 03/04/17 21:39 Dose: 0.4 mg Discontinued Medications Acetaminophen (Tylenol) 975 mg PO NOW ONE Stop: 03/03/17 00:04 Last Admin: 03/03/17 00:32 Dose: Not Given Acetaminophen (Tylenol) 975 mg RECTAL NOW STA Stop: 03/03/17 00:26 Last Admin: 03/03/17 00:31 Dose: 975 mg Bisacodyl (Dulcolax) 10 mg RECTAL ONETIME ONE Stop: 03/03/17 15:16 Last Admin: 03/03/17 15:28 Dose: 10 mg Levofloxacin/Dextrose 750 mg/ (Premix) 150 mls @ 100 mls/hr IV ONETIME ONE Stop: 03/03/17 00:00 Last Admin: 03/02/17 23:07 Dose: 100 mls/hr Sodium Chloride (Normal Saline) 1,000 mls @ 1,000 mls/hr IV .BOLUS [facility] Last Admin: 03/02/17 23:07 Dose: 1,000 mls/hr Sodium Chloride (Normal Saline) 1,000 mls @ 150 mls/hr IV ASDIRECTED [facility] Dextrose/Water (Dextrose 5% In Water) 1,000 mls @ 70 mls/hr IV ASDIRECTED [facility] Last Admin: 03/03/17 23:46 Dose: 100 mls/hr - Exam Quality Assessment: DVT prophylaxis General: alert, oriented, cooperative, no acute distress HEENT: Pupils equal, Pupils reactive, EOMI Neck: supple, trachea midline Lungs: Normal respiratory effort Cardiovascular: Regular Rate, Regular Rhythm Abdomen: bowel sounds present, soft, no tenderness, no distension (Male) Exam: Deferred Back Exam: Normal Inspection Extremities: normal pulses Skin: warm Neurological: no new focal deficit Psy/Mental Status: alert, normal affect, normal mood - Problem List & Annotations (1) Hypernatremia SNOMED Code(s): 97073040 Code(s): E87.0 - HYPEROSMOLALITY AND HYPERNATREMIA Status: Acute Current Visit: Yes (2) Dehydration SNOMED Code(s): 26259495 Code(s): E86.0 - DEHYDRATION Status: Acute Current Visit: No (3) Fever SNOMED Code(s): 489839880 Code(s): R50.9 - FEVER, UNSPECIFIED Status: Acute Current Visit: No (4) Hypotension, Low blood pressure SNOMED Code(s): 60658100 Code(s): I95.9 - HYPOTENSION, UNSPECIFIED Status: Acute Current Visit: No - Problem List Review Problem List Initiated/Reviewed/Updated: Yes - My Orders Last 24 Hours: My Active Orders 03/04/17 Dinner Nothing Per Oral Diet [DIET] 03/06/17 05:00 BASIC METABOLIC PANEL,BMP [CHEM] DAILY CBC WITH AUTO DIFF [HEME] DAILY MAGNESIUM [CHEM] DAILY 03/07/17 05:00 BASIC METABOLIC PANEL,BMP [CHEM] DAILY CBC WITH AUTO DIFF [HEME] DAILY MAGNESIUM [CHEM] DAILY 03/08/17 05:00 CBC WITH AUTO DIFF [HEME] DAILY - Plan Plan:: Impression: AMS, unclear etiology, likely hypernatremia, resolved. cf infection; temp 102.6F in the ED. BCs have been drawn Can not exclude an infection Acute exposure to a viral illness in the NH. Chronic HTN Hyperlipidemia Anxiety Dementia Plan: IVF, D5 for free water, stopped Hold home meds Keep O2, Sat>92% Resp panel work up Empiric ATB, Zithromax, and Rocephin Renal dose Tamiflu DVT/GI prophylaxis
[2017-03-05] MEDS: Azithromycin 500 MG in Sodium Chloride 0.9% 250 ML IV SCH (12:41)
[2017-03-05] MEDS: cefTRIAXone 1 GM in Sodium Chloride 0.9% 100 ML IV SCH (12:41)
[2017-03-05] MEDS: Tamsulosin 0.4 MG Cap.ER PO SCH (22:40)
[2017-03-06] MEDS: Albuterol/Ipratropium 3.0-0.5 MG/3 ML Neb Soln NEB SCH ×4 (06:07→21:10)
[2017-03-06] MEDS: Saccharomyces Boulardii (Probiotic) 250 MG Cap PO SCH (09:03)
[2017-03-06] MEDS: Sertraline 25 MG Tab PO SCH (09:04)
[2017-03-06] MEDS: Oseltamivir 30 MG Cap PO SCH (09:04)
[2017-03-06] MEDS: Aspirin 81 MG Tab.EC PO SCH (09:04)
[2017-03-06] MEDS: MEMANTINE HCL 14 MG PO SCH (09:05)
[2017-03-06] MEDS: Enoxaparin 40 MG/0.4 ML Syringe SUBCUT SCH (09:08)
[2017-03-06] MEDS ORDERED: 50% Dextrose in Water 50 ML Syringe IVPUSH PRN (13:48)
--- NOTE | 2017-03-06 13:56 | PCM.PN ---
<Nicole Fall M - Last Filed: 03/06/17 14:07> - General Info Date of Service: 03/06/17 Admission Dx/Problem (Free Text): Admission Diagnosis/Problem Admission Diagnosis/Problem Pneumonia Patient is seen this morning; resting comfortably in bed. He is nonverbal and non-communicative but does not appear to be in pain/discomfort. His POA, Didier, is present in room this morning. I have a long conversation with him about patient and current status, NPO status, continued PRESS SECRETARY eval. We discuss if patient does not improve from a swallowing aspect and PRESS SECRETARY continues to recommend NPO status what types of decisions would patient want. POCamelia discusses at length that patient would not in any way want to "prolong anything " and that "if there is no quality of life he would not want to go on". Erragini tells me he would elect comfort cares- continue to feed the patient knowing that he would/could be aspirating. He is aware that this can and most likely will cause aspiration, recurrent and/or worsening and may lead to patient's . He, POCamelia- Didier, is okay with this decision. He appreciated this discussion this morning. We will keep him posted with how things progress with PRESS SECRETARY later today. - Review of Systems General: Denies: Fever Systems Review Comment:: Difficult or unable to obtain as patient is nonverbal. - Patient Data Vitals - most recent: Last Vital Signs Temp 98.8 F 03/06/17 08:26 Pulse 93 03/06/17 08:26 Resp 22 H 03/06/17 08:26 BP 126/68 03/06/17 08:26 Pulse Ox 92 L 03/06/17 09:34 Weight - most recent: 55.837 kg I&O - last 24 hours: Intake & Output 03/05/17 03/06/17 03/06/17 22:59 06:59 14:59 Intake Total 350 Balance 350 Lab Results last 24 hrs: Laboratory Results - last 24 hr 03/04/17 03/05/17 03/06/17 Range/Units 06:52 07:40 05:57 WBC (4.23-9.07) K/mm3 RBC (4.63-6.08) M/mm3 Hgb (13.7-17.5) gm/L Hct (40.1-51.0) % MCV (79.0-92.2) fl MCH (25.7-32.2) pg MCHC (32.2-35.5) g/dl RDW Std Deviation (35.1-43.9) fL Plt Count (163-337) K/mm3 MPV (9.4-12.3) fl Neut % (Auto) (34.0-67.9) % Lymph % (Auto) (21.8-53.1) % Lanier % (Auto) (5.3-12.2) % Eos % (Auto) (0.8-7.0) Baso % (Auto) (0.1-1.2) % Neut # (Auto) (1.78-5.38) K/mm3 Lymph # (Auto) (1.32-3.57) K/mm3 Lanier # (Auto) (0.30-0.82) K/mm3 Eos # (Auto) (0.04-0.54) K/mm3 Baso # (Auto) (0.01-0.08) K/mm3 Manual Slide Review Sodium 149 H (136-145) mEq/L Potassium 4.1 (3.5-5.1) mEq/L Chloride 115 H (98-107) mEq/L Carbon Dioxide 24 (21-32) mEq/L Anion Gap 14.1 (5-15) BUN 20 H (7-18) mg/dL Creatinine 0.9 (0.7-1.3) mg/dL Est Cr Clr Drug Dosing 48.25 mL/min Estimated GFR (MDRD) > 60 (>60) mL/min BUN/Creatinine Ratio 22.2 H (14-18) Glucose 222 H (83-115) mg/dL POC Glucose 240 H 240 H (83-110) mg/dL Calcium 8.0 L (8.5-10.1) mg/dL Magnesium 2.5 H (1.8-2.4) mg/dl 03/06/17 03/06/17 03/06/17 Range/Units 05:57 08:02 11:03 WBC 7.16 (4.23-9.07) K/mm3 RBC 4.69 (4.63-6.08) M/mm3 Hgb 13.1 L (13.7-17.5) gm/L Hct 41.2 (40.1-51.0) % MCV 87.8 (79.0-92.2) fl MCH 27.9 (25.7-32.2) pg MCHC 31.8 L (32.2-35.5) g/dl RDW Std Deviation 43.0 (35.1-43.9) fL Plt Count 89 L (163-337) K/mm3 MPV 13.3 H (9.4-12.3) fl Neut % (Auto) 71.2 H (34.0-67.9) % Lymph % (Auto) 16.6 L (21.8-53.1) % Lanier % (Auto) 8.9 (5.3-12.2) % Eos % (Auto) 2.5 (0.8-7.0) Baso % (Auto) 0.4 (0.1-1.2) % Neut # (Auto) 5.09 (1.78-5.38) K/mm3 Lymph # (Auto) 1.19 L (1.32-3.57) K/mm3 Lanier # (Auto) 0.64 (0.30-0.82) K/mm3 Eos # (Auto) 0.18 (0.04-0.54) K/mm3 Baso # (Auto) 0.03 (0.01-0.08) K/mm3 Manual Slide Review Normal smear Sodium (136-145) mEq/L Potassium (3.5-5.1) mEq/L Chloride (98-107) mEq/L Carbon Dioxide (21-32) mEq/L Anion Gap (5-15) BUN (7-18) mg/dL Creatinine (0.7-1.3) mg/dL Est Cr Clr Drug Dosing mL/min Estimated GFR (MDRD) (>60) mL/min BUN/Creatinine Ratio (14-18) Glucose (83-115) mg/dL POC Glucose 215 H 208 H (83-110) mg/dL Calcium (8.5-10.1) mg/dL Magnesium (1.8-2.4) mg/dl Med Orders - Current: Current Medications Albuterol/Ipratropium (Duoneb 3.0-0.5 Mg/3 Ml) 3 ml NEB QIDRT [facility] Last Admin: 03/06/17 09:34 Dose: 3 ml Aspirin (Halfprin) 81 mg PO DAILY [facility] Last Admin: 03/06/17 09:04 Dose: 81 mg Dextrose/Water (Dextrose 50% In Water) 50 ml IVPUSH ASDIRECTED PRN PRN Reason: Hypoglycemia Enoxaparin Sodium (Lovenox) 40 mg SUBCUT DAILY [facility] Last Admin: 03/06/17 09:08 Dose: 40 mg Furosemide (Lasix) 20 mg PO BID [facility] Vancomycin HCl 1 gm/ Sodium (Chloride) 250 mls @ 167 mls/hr IV Q18H [facility] Levofloxacin/Dextrose 750 mg/ (Premix) 150 mls @ 100 mls/hr IV Q48H [facility] Insulin Aspart (Novolog) 0 unit SUBCUT QIDACANDBED [facility] PRN Reason: Protocol Methylprednisolone Sodium Succinate (Solu-Medrol) 40 mg IVPUSH DAILY [facility] Non-Formulary Medication (Lovastatin [Lovastatin]) 40 mg PO BEDTIME [facility] Oseltamivir Phosphate (Tamiflu) 30 mg PO DAILY [facility] Stop: 03/09/17 09:01 Last Admin: 03/06/17 09:04 Dose: 30 mg Oseltamivir Phosphate (Tamiflu) 75 mg PO DAILY [facility] Memantine Hcl 14 Mg (Xr) 0 each PO DAILY [facility] Last Admin: 03/06/17 09:05 Dose: Not Given Saccharomyces Boulardii (Florastor) 500 mg PO DAILY [facility] Last Admin: 03/06/17 09:03 Dose: 500 mg Senna (Senna) 17.2 mg PO DAILY PRN PRN Reason: Constipation Sertraline HCl (Zoloft) 12.5 mg PO DAILY [facility] Last Admin: 03/06/17 09:04 Dose: 12.5 mg Sodium Chloride (Saline Flush) 10 ml FLUSH ASDIRECTED PRN PRN Reason: Keep Vein Open Last Admin: 03/02/17 23:14 Dose: 10 ml Tamsulosin HCl (Flomax) 0.4 mg PO BEDTIME [facility] Last Admin: 03/05/17 22:40 Dose: 0.4 mg Vancomycin HCl (Pharmacy To Dose - Vancomycin) 0 dose .XX ASDIRECTED PRN PRN Reason: RX DOSE Discontinued Medications Acetaminophen (Tylenol) 975 mg PO NOW ONE Stop: 03/03/17 00:04 Last Admin: 03/03/17 00:32 Dose: Not Given Acetaminophen (Tylenol) 975 mg RECTAL NOW STA Stop: 03/03/17 00:26 Last Admin: 03/03/17 00:31 Dose: 975 mg Bisacodyl (Dulcolax) 10 mg RECTAL ONETIME ONE Stop: 03/03/17 15:16 Last Admin: 03/03/17 15:28 Dose: 10 mg Levofloxacin/Dextrose 750 mg/ (Premix) 150 mls @ 100 mls/hr IV ONETIME ONE Stop: 03/03/17 00:00 Last Admin: 03/02/17 23:07 Dose: 100 mls/hr Sodium Chloride (Normal Saline) 1,000 mls @ 1,000 mls/hr IV .BOLUS [facility] Last Admin: 03/02/17 23:07 Dose: 1,000 mls/hr Sodium Chloride (Normal Saline) 1,000 mls @ 150 mls/hr IV ASDIRECTED [facility] Dextrose/Water (Dextrose 5% In Water) 1,000 mls @ 70 mls/hr IV ASDIRECTED [facility] Last Admin: 03/03/17 23:46 Dose: 100 mls/hr Azithromycin 500 mg/ Sodium (Chloride) 250 mls @ 250 mls/hr IV Q24H [facility] Last Admin: 03/05/17 12:41 Dose: 250 mls/hr Ceftriaxone Sodium 1 gm/ (Sodium Chloride) 100 mls @ 200 mls/hr IV Q24H [facility] Last Admin: 03/05/17 12:41 Dose: 200 mls/hr - Exam Quality Assessment: supplemental oxygen, DVT prophylaxis General: no acute distress, other (opens his eyes occasionally when I speak to him) Lungs: Normal respiratory effort, Decreased breath sounds, Rales (rt mid to lower right lung), Rhonchi, Wheezing Cardiovascular: Regular Rate, Regular Rhythm Abdomen: bowel sounds present, soft (Male) Exam: Deferred Extremities: no edema, no calf tenderness Peripheral Pulses: 1+: Dorsalis Pedis (L), Dorsalis Pedis (R) Skin: warm, dry - Problem List & Annotations (1) Pneumonia SNOMED Code(s): 641286592 Code(s): J18.9 - PNEUMONIA, UNSPECIFIED ORGANISM Status: Acute Priority: High Current Visit: Yes Qualifiers: Pneumonia type: aspiration pneumonia Laterality: right Lung location: middle lobe of lung (2) Hypoxia SNOMED Code(s): 824582441, 165447797 Code(s): R09.02 - HYPOXEMIA Status: Acute Priority: High Current Visit : Yes (3) Hypernatremia SNOMED Code(s): 12448248 Code(s): E87.0 - HYPEROSMOLALITY AND HYPERNATREMIA Status: Acute Priority : High Current Visit: Yes (4) Dehydration SNOMED Code(s): 67656848 Code(s): E86.0 - DEHYDRATION Status: Resolved Priority: High Current Visit: Yes - Problem List Review Problem List Initiated/Reviewed/Updated: Yes - My Orders Last 24 Hours: My Active Orders 03/06/17 12:41 Vancomycin Pharmacy to Dose [Pharmacy to Dose - Vancomycin] 0 dose .XX ASDIRECTED PRN 03/06/17 13:30 Levofloxacin/Dextrose 5%-Water [Levaquin in D5W 750 MG/150 ML] 750 mg Premix Bag 1 bag IV Q48H Vancomycin [Vancocin] 1 gm Sodium Chloride 0.9% [Normal Saline] 250 ml IV Q18H methylPREDNISolone Sod Succ [Solu-MEDROL] 40 mg IVPUSH DAILY 03/06/17 13:48 Blood Glucose Check, Bedside [RC] QIDACANDBED Dextrose 50% in Water 50 ml IVPUSH ASDIRECTED PRN 03/06/17 14:00 Furosemide [Lasix] 20 mg PO BID Oseltamivir [Tamiflu] 75 mg PO DAILY 03/06/17 17:00 Insulin Aspart [NovoLOG] See Protocol SUBCUT QIDACANDBED 03/06/17 21:00 Lovastatin [Lovastatin] 40 mg PO BEDTIME 03/08/17 19:00 VANCOMYCIN TROUGH [CHEM] Timed - Plan Plan:: Impression/Plan: Aspiration pneumonia- recurrent and likely chronic -CXR with right ML asymetric density, suspected to be old- I feel this is likely due to chronic aspiration pneumonia -Will change IV abx to Levaquin and Vancomycin as he was + for MRSA via PCR screening -Cont with O2 to keep sats >90% -RT, Nebs -Viral illness exposure/influenza at [place]- flu screen is negative; tamiflu discontinued upon receipt of negative flu results -PRESS SECRETARY eval and tx; swallow-- currently NPO status, eval ongoing. AMS, unclear etiology, likely hypernatremia accompanied by infection and hypoxia , resolved and at baseline chronic dementia Hypernatremia- fluctuant levels -cont to follow am labs Chronic: HTN- stable Hyperlipidemia Anxiety Dementia- baseline; nonverbal; nonambulatory Other: DVT/GI prophylaxis CM/SW for assistance with DC planning- back to NH when medically stable LOS likely >96 hours due to longer than expected course of recovery; cont PRESS SECRETARY evaluation for aspiration, NPO status currently with swallow. Patient is DNR/DNI at this time; POA is considering Comfort Care pending ongoing PRESS SECRETARY eval/swallowing recommendations. <Montserrat Maguire - Last Filed: 03/06/17 19:04> - General Info Functional Status: Reports: tolerating diet (diet as prescribed by speech path) , urinating - Patient Data Vitals - most recent: Last Vital Signs Temp 36.8 C 03/06/17 16:22 Pulse 102 H 03/06/17 16:22 Resp 20 03/06/17 16:22 BP 114/78 03/06/17 16:22 Pulse Ox 90 L 03/06/17 16:22 I&O - last 24 hours: Intake & Output 03/06/17 03/06/17 03/06/17 06:59 14:59 22:59 Intake Total 400 Balance 400 Lab Results last 24 hrs: Laboratory Results - last 24 hr 03/04/17 03/05/17 03/06/17 Range/Units 06:52 07:40 05:57 WBC (4.23-9.07) K/mm3 RBC (4.63-6.08) M/mm3 Hgb (13.7-17.5) gm/L Hct (40.1-51.0) % MCV (79.0-92.2) fl MCH (25.7-32.2) pg MCHC (32.2-35.5) g/dl RDW Std Deviation (35.1-43.9) fL Plt Count (163-337) K/mm3 MPV (9.4-12.3) fl Neut % (Auto) (34.0-67.9) % Lymph % (Auto) (21.8-53.1) % Lanier % (Auto) (5.3-12.2) % Eos % (Auto) (0.8-7.0) Baso % (Auto) (0.1-1.2) % Neut # (Auto) (1.78-5.38) K/mm3 Lymph # (Auto) (1.32-3.57) K/mm3 Lanier # (Auto) (0.30-0.82) K/mm3 Eos # (Auto) (0.04-0.54) K/mm3 Baso # (Auto) (0.01-0.08) K/mm3 Manual Slide Review Sodium 149 H (136-145) mEq/L Potassium 4.1 (3.5-5.1) mEq/L Chloride 115 H (98-107) mEq/L Carbon Dioxide 24 (21-32) mEq/L Anion Gap 14.1 (5-15) BUN 20 H (7-18) mg/dL Creatinine 0.9 (0.7-1.3) mg/dL Est Cr Clr Drug Dosing 48.25 mL/min Estimated GFR (MDRD) > 60 (>60) mL/min BUN/Creatinine Ratio 22.2 H (14-18) Glucose 222 H (83-115) mg/dL POC Glucose 240 H 240 H (83-110) mg/dL Calcium 8.0 L (8.5-10.1) mg/dL Magnesium 2.5 H (1.8-2.4) mg/dl 03/06/17 03/06/17 03/06/17 Range/Units 05:57 08:02 11:03 WBC 7.16 (4.23-9.07) K/mm3 RBC 4.69 (4.63-6.08) M/mm3 Hgb 13.1 L (13.7-17.5) gm/L Hct 41.2 (40.1-51.0) % MCV 87.8 (79.0-92.2) fl MCH 27.9 (25.7-32.2) pg MCHC 31.8 L (32.2-35.5) g/dl RDW Std Deviation 43.0 (35.1-43.9) fL Plt Count 89 L (163-337) K/mm3 MPV 13.3 H (9.4-12.3) fl Neut % (Auto) 71.2 H (34.0-67.9) % Lymph % (Auto) 16.6 L (21.8-53.1) % Lanier % (Auto) 8.9 (5.3-12.2) % Eos % (Auto) 2.5 (0.8-7.0) Baso % (Auto) 0.4 (0.1-1.2) % Neut # (Auto) 5.09 (1.78-5.38) K/mm3 Lymph # (Auto) 1.19 L (1.32-3.57) K/mm3 Lanier # (Auto) 0.64 (0.30-0.82) K/mm3 Eos # (Auto) 0.18 (0.04-0.54) K/mm3 Baso # (Auto) 0.03 (0.01-0.08) K/mm3 Manual Slide Review Normal smear Sodium (136-145) mEq/L Potassium (3.5-5.1) mEq/L Chloride (98-107) mEq/L Carbon Dioxide (21-32) mEq/L Anion Gap (5-15) BUN (7-18) mg/dL Creatinine (0.7-1.3) mg/dL Est Cr Clr Drug Dosing mL/min Estimated GFR (MDRD) (>60) mL/min BUN/Creatinine Ratio (14-18) Glucose (83-115) mg/dL POC Glucose 215 H 208 H (83-110) mg/dL Calcium (8.5-10.1) mg/dL Magnesium (1.8-2.4) mg/dl Med Orders - Current: Current Medications Albuterol/Ipratropium (Duoneb 3.0-0.5 Mg/3 Ml) 3 ml NEB QIDRT [facility] Last Admin: 03/06/17 15:03 Dose: 3 ml Aspirin (Halfprin) 81 mg PO DAILY [facility] Last Admin: 03/06/17 09:04 Dose: 81 mg Dextrose/Water (Dextrose 50% In Water) 50 ml IVPUSH ASDIRECTED PRN PRN Reason: Hypoglycemia Enoxaparin Sodium (Lovenox) 40 mg SUBCUT DAILY [facility] Last Admin: 03/06/17 09:08 Dose: 40 mg Furosemide (Lasix) 20 mg PO BID [facility] Last Admin: 03/06/17 14:33 Dose: 20 mg Vancomycin HCl 1 gm/ Sodium (Chloride) 250 mls @ 167 mls/hr IV Q18H [facility] Last Admin: 03/06/17 14:29 Dose: 167 mls/hr Levofloxacin/Dextrose 750 mg/ (Premix) 150 mls @ 100 mls/hr IV Q48H [facility] Last Admin: 03/06/17 14:29 Dose: 100 mls/hr Insulin Aspart (Novolog) 0 unit SUBCUT QIDACANDBED [facility] PRN Reason: Protocol Last Admin: 03/06/17 18:46 Dose: Not Given Methylprednisolone Sodium Succinate (Solu-Medrol) 40 mg IVPUSH DAILY [facility] Last Admin: 03/06/17 14:27 Dose: 40 mg Oseltamivir Phosphate (Tamiflu) 30 mg PO DAILY [facility] Stop: 03/09/17 09:01 Last Admin: 03/06/17 09:04 Dose: 30 mg Memantine Hcl 14 Mg (Xr) 0 each PO DAILY [facility] Last Admin: 03/06/17 09:05 Dose: Not Given Saccharomyces Boulardii (Florastor) 500 mg PO DAILY [facility] Last Admin: 03/06/17 09:03 Dose: 500 mg Senna (Senna) 17.2 mg PO DAILY PRN PRN Reason: Constipation Sertraline HCl (Zoloft) 12.5 mg PO DAILY [facility] Last Admin: 03/06/17 09:04 Dose: 12.5 mg Simvastatin (Zocor) 20 mg PO BEDTIME [facility] Sodium Chloride (Saline Flush) 10 ml FLUSH ASDIRECTED PRN PRN Reason: Keep Vein Open Last Admin: 03/02/17 23:14 Dose: 10 ml Tamsulosin HCl (Flomax) 0.4 mg PO BEDTIME [facility] Last Admin: 03/05/17 22:40 Dose: 0.4 mg Vancomycin HCl (Pharmacy To Dose - Vancomycin) 0 dose .XX ASDIRECTED PRN PRN Reason: RX DOSE Discontinued Medications Acetaminophen (Tylenol) 975 mg PO NOW ONE Stop: 03/03/17 00:04 Last Admin: 03/03/17 00:32 Dose: Not Given Acetaminophen (Tylenol) 975 mg RECTAL NOW STA Stop: 03/03/17 00:26 Last Admin: 03/03/17 00:31 Dose: 975 mg Bisacodyl (Dulcolax) 10 mg RECTAL ONETIME ONE Stop: 03/03/17 15:16 Last Admin: 03/03/17 15:28 Dose: 10 mg Levofloxacin/Dextrose 750 mg/ (Premix) 150 mls @ 100 mls/hr IV ONETIME ONE Stop: 03/03/17 00:00 Last Admin: 03/02/17 23:07 Dose: 100 mls/hr Sodium Chloride (Normal Saline) 1,000 mls @ 1,000 mls/hr IV .BOLUS [facility] Last Admin: 03/02/17 23:07 Dose: 1,000 mls/hr Sodium Chloride (Normal Saline) 1,000 mls @ 150 mls/hr IV ASDIRECTED [facility] Dextrose/Water (Dextrose 5% In Water) 1,000 mls @ 70 mls/hr IV ASDIRECTED [facility] Last Admin: 03/03/17 23:46 Dose: 100 mls/hr Azithromycin 500 mg/ Sodium (Chloride) 250 mls @ 250 mls/hr IV Q24H [facility] Last Admin: 03/05/17 12:41 Dose: 250 mls/hr Ceftriaxone Sodium 1 gm/ (Sodium Chloride) 100 mls @ 200 mls/hr IV Q24H [facility] Last Admin: 03/05/17 12:41 Dose: 200 mls/hr Oseltamivir Phosphate (Tamiflu) 75 mg PO DAILY [facility] - Problem List & Annotations (1) Hypernatremia SNOMED Code(s): 76768070 Code(s): E87.0 - HYPEROSMOLALITY AND HYPERNATREMIA Status: Acute Priority : High Current Visit: Yes (2) Dehydration SNOMED Code(s): 50805904 Code(s): E86.0 - DEHYDRATION Status: Resolved Priority: High Current Visit: Yes (3) Fever SNOMED Code(s): 906254182 Code(s): R50.9 - FEVER, UNSPECIFIED Status: Acute Current Visit: No (4) Hypotension, Low blood pressure SNOMED Code(s): 53000314 Code(s): I95.9 - HYPOTENSION, UNSPECIFIED Status: Acute Current Visit: No - My Orders Last 24 Hours: My Active Orders 03/06/17 Lunch Pureed Diet [DIET] 03/07/17 05:00 BASIC METABOLIC PANEL,BMP [CHEM] DAILY CBC WITH AUTO DIFF [HEME] DAILY MAGNESIUM [CHEM] DAILY 03/08/17 05:00 CBC WITH AUTO DIFF [HEME] DAILY - Plan Plan:: Will be DCd on current diet, DC 24-48 hours; POA has been updated.
[2017-03-06] MEDS ORDERED: Oseltamivir 75 MG Cap PO SCH (14:00)
[2017-03-06] MEDS: methylPREDNISolone Sodium Succinate 40 MG/1 ML SDV IVPUSH SCH (14:27)
[2017-03-06] MEDS: Levofloxacin/Dextrose 5%-Water 750 MG in Premix Bag 1 BAG IV SCH (14:29)
[2017-03-06] MEDS: Furosemide 20 MG Tab PO SCH ×2 (14:33→21:53)
[2017-03-06] MEDS: Insulin Aspart 100 Units/ML 3 ML Pen SUBCUT SCH ×2 (18:46→21:54)
[2017-03-06] MEDS: Tamsulosin 0.4 MG Cap.ER PO SCH (21:53)
[2017-03-06] MEDS: Simvastatin 20 MG Tab PO SCH (21:53)
[2017-03-07] MEDS ORDERED: Bisacodyl 10 MG Supp RECTAL ONE (05:00)
[2017-03-07] MEDS: Albuterol/Ipratropium 3.0-0.5 MG/3 ML Neb Soln NEB SCH ×4 (06:09→20:51)
[2017-03-07] MEDS: Insulin Aspart 100 Units/ML 3 ML Pen SUBCUT SCH ×4 (06:50→22:03)
[2017-03-07] MEDS ORDERED: Dextrose 5% in Water 1,000 ML IV SCH (08:00)
[2017-03-07] MEDS: Sertraline 25 MG Tab PO SCH (09:05)
[2017-03-07] MEDS: Aspirin 81 MG Tab.EC PO SCH (09:05)
[2017-03-07] MEDS: Oseltamivir 30 MG Cap PO SCH (09:05)
[2017-03-07] MEDS: Furosemide 20 MG Tab PO SCH ×2 (09:05→21:59)
[2017-03-07] MEDS: MEMANTINE HCL 14 MG PO SCH (09:06)
[2017-03-07] MEDS: Saccharomyces Boulardii (Probiotic) 250 MG Cap PO SCH ×2 (09:06→21:59)
[2017-03-07] MEDS: methylPREDNISolone Sodium Succinate 40 MG/1 ML SDV IVPUSH SCH (09:09)
[2017-03-07] MEDS: Enoxaparin 40 MG/0.4 ML Syringe SUBCUT SCH (09:13)
--- NOTE | 2017-03-07 15:37 | PCM.PN ---
- General Info Date of Service: 03/07/17 Admission Dx/Problem (Free Text): Admission Diagnosis/Problem Admission Diagnosis/Problem Pneumonia Patient is seen this morning; resting comfortably in bed. He is nonverbal and non-communicative but does not appear to be in pain/discomfort. Much more alert today. At time of exam was being fed breakfast, tolerating well. Passed swallow study yesterday, so diet was advanced. He smiles at me today. Functional Status: Reports: tolerating diet, urinating (incontinent). 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; nonverbal - Patient Data Vitals - most recent: Last Vital Signs Temp 98.2 F 03/07/17 15:14 Pulse 100 03/07/17 15:14 Resp 22 H 03/07/17 15:14 BP 103/59 L 03/07/17 15:14 Pulse Ox 92 L 03/07/17 15:14 Weight - most recent: 121 lb 11.2 oz I&O - last 24 hours: Intake & Output 03/07/17 03/07/17 03/07/17 06:59 14:59 22:59 Intake Total 330 0 Balance 330 0 Lab Results last 24 hrs: Laboratory Results - last 24 hr 03/06/17 03/07/17 03/07/17 Range/Units 21:53 05:30 05:30 WBC 9.12 H (4.23-9.07) K/mm3 RBC 4.89 (4.63-6.08) M/mm3 Hgb 13.5 L (13.7-17.5) gm/L Hct 42.4 (40.1-51.0) % MCV 86.7 (79.0-92.2) fl MCH 27.6 (25.7-32.2) pg MCHC 31.8 L (32.2-35.5) g/dl RDW Std Deviation 41.5 (35.1-43.9) fL Plt Count 110 L (163-337) K/mm3 MPV 13.6 H (9.4-12.3) fl Neut % (Auto) 78.1 H (34.0-67.9) % Lymph % (Auto) 12.1 L (21.8-53.1) % [place] % (Auto) 9.3 (5.3-12.2) % Eos % (Auto) 0 L (0.8-7.0) Baso % (Auto) 0.1 (0.1-1.2) % Neut # (Auto) 7.12 H (1.78-5.38) K/mm3 Lymph # (Auto) 1.10 L (1.32-3.57) K/mm3 [place] # (Auto) 0.85 H (0.30-0.82) K/mm3 Eos # (Auto) 0.00 L (0.04-0.54) K/mm3 Baso # (Auto) 0.01 (0.01-0.08) K/mm3 Sodium 150 H (136-145) mEq/L Potassium 3.8 (3.5-5.1) mEq/L Chloride 113 H (98-107) mEq/L Carbon Dioxide 24 (21-32) mEq/L Anion Gap 16.8 H (5-15) BUN 28 H (7-18) mg/dL Creatinine 1.2 (0.7-1.3) mg/dL Est Cr Clr Drug Dosing 35.78 mL/min Estimated GFR (MDRD) 58 (>60) mL/min BUN/Creatinine Ratio 23.3 H (14-18) Glucose 314 H (83-115) mg/dL POC Glucose 373 H (83-110) mg/dL Calcium 8.3 L (8.5-10.1) mg/dL Magnesium 2.7 H (1.8-2.4) mg/dl 03/07/17 03/07/17 Range/Units 06:49 12:10 WBC (4.23-9.07) K/mm3 RBC (4.63-6.08) M/mm3 Hgb (13.7-17.5) gm/L Hct (40.1-51.0) % MCV (79.0-92.2) fl MCH (25.7-32.2) pg MCHC (32.2-35.5) g/dl RDW Std Deviation (35.1-43.9) fL Plt Count (163-337) K/mm3 MPV (9.4-12.3) fl Neut % (Auto) (34.0-67.9) % Lymph % (Auto) (21.8-53.1) % [place] % (Auto) (5.3-12.2) % Eos % (Auto) (0.8-7.0) Baso % (Auto) (0.1-1.2) % Neut # (Auto) (1.78-5.38) K/mm3 Lymph # (Auto) (1.32-3.57) K/mm3 [place] # (Auto) (0.30-0.82) K/mm3 Eos # (Auto) (0.04-0.54) K/mm3 Baso # (Auto) (0.01-0.08) K/mm3 Sodium (136-145) mEq/L Potassium (3.5-5.1) mEq/L Chloride (98-107) mEq/L Carbon Dioxide (21-32) mEq/L Anion Gap (5-15) BUN (7-18) mg/dL Creatinine (0.7-1.3) mg/dL Est Cr Clr Drug Dosing mL/min Estimated GFR (MDRD) (>60) mL/min BUN/Creatinine Ratio (14-18) Glucose 505 H (83-115) mg/dL POC Glucose 318 H (83-110) mg/dL Calcium (8.5-10.1) mg/dL Magnesium (1.8-2.4) mg/dl Med Orders - Current: Current Medications Albuterol/Ipratropium (Duoneb 3.0-0.5 Mg/3 Ml) 3 ml NEB QIDRT [facility] Last Admin: 03/07/17 09:21 Dose: 3 ml Aspirin (Halfprin) 81 mg PO DAILY [facility] Last Admin: 03/07/17 09:05 Dose: 81 mg Dextrose/Water (Dextrose 50% In Water) 50 ml IVPUSH ASDIRECTED PRN PRN Reason: Hypoglycemia Enoxaparin Sodium (Lovenox) 40 mg SUBCUT DAILY [facility] Last Admin: 03/07/17 09:13 Dose: 40 mg Furosemide (Lasix) 20 mg PO BID [facility] Last Admin: 03/07/17 09:05 Dose: 20 mg Vancomycin HCl 1 gm/ Sodium (Chloride) 250 mls @ 167 mls/hr IV Q18H [facility] Last Admin: 03/07/17 06:45 Dose: 167 mls/hr Levofloxacin/Dextrose 750 mg/ (Premix) 150 mls @ 100 mls/hr IV Q48H [facility] Last Admin: 03/06/17 14:29 Dose: 100 mls/hr Insulin Aspart (Novolog) 0 unit SUBCUT QIDACANDBED [facility] PRN Reason: Protocol Last Admin: 03/07/17 13:23 Dose: 10 units Memantine Hcl 14 Mg (Xr) 0 each PO DAILY [facility] Last Admin: 03/07/17 09:06 Dose: Not Given Saccharomyces Boulardii (Florastor) 250 mg PO BID [facility] Senna (Senna) 17.2 mg PO DAILY PRN PRN Reason: Constipation Sertraline HCl (Zoloft) 12.5 mg PO DAILY [facility] Last Admin: 03/07/17 09:05 Dose: 12.5 mg Simvastatin (Zocor) 20 mg PO BEDTIME [facility] Last Admin: 03/06/17 21:53 Dose: 20 mg Sodium Chloride (Saline Flush) 10 ml FLUSH ASDIRECTED PRN PRN Reason: Keep Vein Open Last Admin: 03/02/17 23:14 Dose: 10 ml Tamsulosin HCl (Flomax) 0.4 mg PO BEDTIME [facility] Last Admin: 03/06/17 21:53 Dose: 0.4 mg Vancomycin HCl (Pharmacy To Dose - Vancomycin) 0 dose .XX ASDIRECTED PRN PRN Reason: RX DOSE Discontinued Medications Acetaminophen (Tylenol) 975 mg PO NOW ONE Stop: 03/03/17 00:04 Last Admin: 03/03/17 00:32 Dose: Not Given Acetaminophen (Tylenol) 975 mg RECTAL NOW STA Stop: 03/03/17 00:26 Last Admin: 03/03/17 00:31 Dose: 975 mg Bisacodyl (Dulcolax) 10 mg RECTAL ONETIME ONE Stop: 03/03/17 15:16 Last Admin: 03/03/17 15:28 Dose: 10 mg Bisacodyl (Dulcolax) 10 mg RECTAL ONETIME ONE Stop: 03/07/17 05:01 Last Admin: 03/07/17 05:49 Dose: 10 mg Levofloxacin/Dextrose 750 mg/ (Premix) 150 mls @ 100 mls/hr IV ONETIME ONE Stop: 03/03/17 00:00 Last Admin: 03/02/17 23:07 Dose: 100 mls/hr Sodium Chloride (Normal Saline) 1,000 mls @ 1,000 mls/hr IV .BOLUS [facility] Last Admin: 03/02/17 23:07 Dose: 1,000 mls/hr Sodium Chloride (Normal Saline) 1,000 mls @ 150 mls/hr IV ASDIRECTED [facility] Dextrose/Water (Dextrose 5% In Water) 1,000 mls @ 70 mls/hr IV ASDIRECTED [facility] Last Admin: 03/03/17 23:46 Dose: 100 mls/hr Azithromycin 500 mg/ Sodium (Chloride) 250 mls @ 250 mls/hr IV Q24H [facility] Last Admin: 03/05/17 12:41 Dose: 250 mls/hr Ceftriaxone Sodium 1 gm/ (Sodium Chloride) 100 mls @ 200 mls/hr IV Q24H [facility] Last Admin: 03/05/17 12:41 Dose: 200 mls/hr Dextrose/Water (Dextrose 5% In Water) 1,000 mls @ 100 mls/hr IV ASDIRECTED [facility] Stop: 03/07/17 13:00 Last Admin: 03/07/17 09:03 Dose: 100 mls/hr Methylprednisolone Sodium Succinate (Solu-Medrol) 40 mg IVPUSH DAILY [facility] Last Admin: 03/07/17 09:09 Dose: 40 mg Oseltamivir Phosphate (Tamiflu) 30 mg PO DAILY [facility] Stop: 03/09/17 09:01 Last Admin: 03/07/17 09:05 Dose: 30 mg Oseltamivir Phosphate (Tamiflu) 75 mg PO DAILY [facility] Saccharomyces Boulardii (Florastor) 500 mg PO DAILY [facility] Last Admin: 03/07/17 09:06 Dose: 500 mg - Exam Quality Assessment: supplemental oxygen, DVT prophylaxis General: alert, cooperative, no acute distress HEENT: Pupils equal, Pupils reactive, EOMI, Mucous membr. moist/pink Neck: supple Lungs: Normal respiratory effort, Decreased breath sounds (bases), Other (lung sound significantly improved from yesterday; no rhonchi or rales noted today) Cardiovascular: Regular Rate, Regular Rhythm, Murmurs (systolic present) Abdomen: bowel sounds present, soft, no tenderness, no distension (Male) Exam: Deferred Back Exam: Normal Inspection Extremities: no edema, no calf tenderness Peripheral Pulses: 1+: Dorsalis Pedis (L), Dorsalis Pedis (R) Skin: warm, dry Neurological: No: normal speech (nonverbal) Psy/Mental Status: alert - Problem List & Annotations (1) Pneumonia SNOMED Code(s): 742632955 Code(s): J18.9 - PNEUMONIA, UNSPECIFIED ORGANISM Status: Acute Priority: High Current Visit: Yes Qualifiers: Pneumonia type: aspiration pneumonia Laterality: right Lung location: middle lobe of lung (2) Hypoxia SNOMED Code(s): 495552508, 533840537 Code(s): R09.02 - HYPOXEMIA Status: Acute Priority: High Current Visit : Yes (3) Hypernatremia SNOMED Code(s): 06977314 Code(s): E87.0 - HYPEROSMOLALITY AND HYPERNATREMIA Status: Acute Priority : High Current Visit: Yes (4) Dehydration SNOMED Code(s): 72617479 Code(s): E86.0 - DEHYDRATION Status: Resolved Priority: High Current Visit: Yes (5) Elevated blood sugar SNOMED Code(s): 19028417 Code(s): R73.9 - HYPERGLYCEMIA, UNSPECIFIED Status: Acute Priority: High Current Visit: Yes - Problem List Review Problem List Initiated/Reviewed/Updated: Yes - My Orders Last 24 Hours: My Active Orders 03/06/17 17:00 Insulin Aspart [NovoLOG] See Protocol SUBCUT QIDACANDBED 03/06/17 21:00 Simvastatin [Zocor] 20 mg PO BEDTIME 03/07/17 10:24 POC Glucose [Blood Glucose Check, Bedside] [RC] ONETIME 03/07/17 10:27 Blood Glucose Check, Bedside [RC] ONETIME 03/07/17 21:00 Saccharomyces Boulardii [Florastor] 250 mg PO BID 03/08/17 05:11 BASIC METABOLIC PANEL,BMP [CHEM] AM MAGNESIUM [CHEM] AM 03/08/17 19:00 VANCOMYCIN TROUGH [CHEM] Timed - Plan Plan:: Impression/Plan: Aspiration pneumonia- recurrent and likely chronic----much improved clinically today -CXR with right ML asymetric density, suspected to be old- I feel this is likely due to chronic aspiration pneumonia -Will change IV abx to Levaquin and Vancomycin as he was + for MRSA via PCR screening -DC solumedrol today; PO prednisone taper -Cont with O2 to keep sats >90% -RT, Nebs -Viral illness exposure/influenza at [place]- flu screen is negative; tamiflu discontinued upon receipt of negative flu results -CARPET OR RUG LAYER HELPER eval and tx; swallow-- diet was advanced yesterday afternoon; doing well thus far AMS, unclear etiology, likely hypernatremia accompanied by infection and hypoxia , resolved and at baseline chronic dementia Hypernatremia- fluctuant levels -cont to follow am labs -level worse today at 150 -will start D5W -Plan recheck Na+ later today -Cover elevated blood sugars with SSI PRN Elevated blood sugars -Infection likely contributing; Solumedrol likely contributing; D5W infusion likely contributing -Will check A1C -SSI coverage Chronic: HTN- stable Hyperlipidemia Anxiety Dementia- baseline; nonverbal; nonambulatory Other: DVT/GI prophylaxis CM/SW for assistance with DC planning- back to [place] when medically stable LOS likely >96 hours due to longer than expected course of recovery; cont CARPET OR RUG LAYER HELPER evaluation for aspiration and diet advancement; hypernatremia/electrolyte correction. Patient is DNR/DNI at this time; POA is considering Comfort Care pending ongoing CARPET OR RUG LAYER HELPER eval/swallowing recommendations.
[2017-03-07] MEDS: Tamsulosin 0.4 MG Cap.ER PO SCH (21:59)
[2017-03-07] MEDS: Simvastatin 20 MG Tab PO SCH (21:59)
[2017-03-08] MEDS: Albuterol/Ipratropium 3.0-0.5 MG/3 ML Neb Soln NEB SCH ×4 (06:14→20:40)
[2017-03-08] MEDS ORDERED: predniSONE 20 MG Tab PO SCH (09:00)
[2017-03-08] MEDS: Furosemide 20 MG Tab PO SCH ×2 (09:10→21:47)
[2017-03-08] MEDS: Sertraline 25 MG Tab PO SCH (09:10)
[2017-03-08] MEDS: Saccharomyces Boulardii (Probiotic) 250 MG Cap PO SCH ×2 (09:10→21:48)
[2017-03-08] MEDS: Aspirin 81 MG Tab.EC PO SCH (09:10)
[2017-03-08] MEDS: Enoxaparin 40 MG/0.4 ML Syringe SUBCUT SCH (09:11)
[2017-03-08] MEDS: MEMANTINE HCL 14 MG PO SCH (09:11)
[2017-03-08] MEDS: Insulin Aspart 100 Units/ML 3 ML Pen SUBCUT SCH ×4 (09:11→22:46)
[2017-03-08] MEDS ORDERED: Dextrose 5% in Water 1,000 ML IV SCH (09:15)
--- NOTE | 2017-03-08 10:38 | PCM.PN ---
- General Info Date of Service: 03/08/17 Admission Dx/Problem (Free Text): Admission Diagnosis/Problem Admission Diagnosis/Problem Pneumonia Patient is seen this morning; resting comfortably in bed. He is nonverbal and non-communicative but does not appear to be in pain/discomfort. Much more alert today. POA/friend, Erv, is present in room. I review labs and POC with him. Functional Status: Reports: tolerating diet, urinating (incontinent) - Review of Systems Systems Review Comment:: Unable to obtain as patient is nonverbal and end stage dementia - Patient Data Vitals - most recent: Last Vital Signs Temp 98.1 F 03/08/17 08:33 Pulse 92 03/08/17 08:33 Resp 18 03/08/17 08:33 BP 118/98 H 03/08/17 08:33 Pulse Ox 94 L 03/08/17 08:59 Weight - most recent: 118 lb 1.6 oz I&O - last 24 hours: Intake & Output 03/07/17 03/08/17 03/08/17 22:59 06:59 14:59 Intake Total 1190 370 Balance 1190 370 Lab Results last 24 hrs: Laboratory Results - last 24 hr 03/07/17 03/07/17 03/07/17 Range/Units 12:10 15:57 15:57 WBC (4.23-9.07) K/mm3 RBC (4.63-6.08) M/mm3 Hgb (13.7-17.5) gm/L Hct (40.1-51.0) % MCV (79.0-92.2) fl MCH (25.7-32.2) pg MCHC (32.2-35.5) g/dl RDW Std Deviation (35.1-43.9) fL Plt Count (163-337) K/mm3 MPV (9.4-12.3) fl Neut % (Auto) (34.0-67.9) % Lymph % (Auto) (21.8-53.1) % [place] % (Auto) (5.3-12.2) % Eos % (Auto) (0.8-7.0) Baso % (Auto) (0.1-1.2) % Neut # (Auto) (1.78-5.38) K/mm3 Lymph # (Auto) (1.32-3.57) K/mm3 [place] # (Auto) (0.30-0.82) K/mm3 Eos # (Auto) (0.04-0.54) K/mm3 Baso # (Auto) (0.01-0.08) K/mm3 Manual Slide Review Sodium 148 H (136-145) mEq/L Potassium 4.2 (3.5-5.1) mEq/L Chloride 112 H (98-107) mEq/L Carbon Dioxide 23 (21-32) mEq/L Anion Gap 17.2 H (5-15) BUN 31 H (7-18) mg/dL Creatinine 1.4 H (0.7-1.3) mg/dL Est Cr Clr Drug Dosing 30.67 mL/min Estimated GFR (MDRD) 48 (>60) mL/min BUN/Creatinine Ratio 22.1 H (14-18) Glucose 505 H 455 H (83-115) mg/dL POC Glucose (83-110) mg/dL Hemoglobin A1c 9.30 H (4.50-6.20) % Calcium 8.7 (8.5-10.1) mg/dL Magnesium 2.7 H (1.8-2.4) mg/dl Total Bilirubin 0.4 (0.2-1.0) mg/dL AST 17 (15-37) U/L ALT 23 (16-63) U/L Alkaline Phosphatase 57 (46-116) U/L Total Protein 7.3 (6.4-8.2) g/dl Albumin 3.1 L (3.4-5.0) g/dl Globulin 4.2 gm/dL Albumin/Globulin Ratio 0.7 L (1-2) 03/07/17 03/07/17 03/08/17 Range/Units 18:15 22:03 05:37 WBC 9.75 H (4.23-9.07) K/mm3 RBC 5.05 (4.63-6.08) M/mm3 Hgb 14.1 (13.7-17.5) gm/L Hct 43.6 (40.1-51.0) % MCV 86.3 (79.0-92.2) fl MCH 27.9 (25.7-32.2) pg MCHC 32.3 (32.2-35.5) g/dl RDW Std Deviation 41.7 (35.1-43.9) fL Plt Count 128 L (163-337) K/mm3 MPV 13.1 H (9.4-12.3) fl Neut % (Auto) 72.4 H (34.0-67.9) % Lymph % (Auto) 18.2 L (21.8-53.1) % [place] % (Auto) 8.9 (5.3-12.2) % Eos % (Auto) 0.1 L (0.8-7.0) Baso % (Auto) 0.1 (0.1-1.2) % Neut # (Auto) 7.06 H (1.78-5.38) K/mm3 Lymph # (Auto) 1.77 (1.32-3.57) K/mm3 [place] # (Auto) 0.87 H (0.30-0.82) K/mm3 Eos # (Auto) 0.01 L (0.04-0.54) K/mm3 Baso # (Auto) 0.01 (0.01-0.08) K/mm3 Manual Slide Review Normal smear Sodium (136-145) mEq/L Potassium (3.5-5.1) mEq/L Chloride (98-107) mEq/L Carbon Dioxide (21-32) mEq/L Anion Gap (5-15) BUN (7-18) mg/dL Creatinine (0.7-1.3) mg/dL Est Cr Clr Drug Dosing mL/min Estimated GFR (MDRD) (>60) mL/min BUN/Creatinine Ratio (14-18) Glucose (83-115) mg/dL POC Glucose 306 H 170 H (83-110) mg/dL Hemoglobin A1c (4.50-6.20) % Calcium (8.5-10.1) mg/dL Magnesium (1.8-2.4) mg/dl Total Bilirubin (0.2-1.0) mg/dL AST (15-37) U/L ALT (16-63) U/L Alkaline Phosphatase (46-116) U/L Total Protein (6.4-8.2) g/dl Albumin (3.4-5.0) g/dl Globulin gm/dL Albumin/Globulin Ratio (1-2) 03/08/17 03/08/17 Range/Units 05:37 06:00 WBC (4.23-9.07) K/mm3 RBC (4.63-6.08) M/mm3 Hgb (13.7-17.5) gm/L Hct (40.1-51.0) % MCV (79.0-92.2) fl MCH (25.7-32.2) pg MCHC (32.2-35.5) g/dl RDW Std Deviation (35.1-43.9) fL Plt Count (163-337) K/mm3 MPV (9.4-12.3) fl Neut % (Auto) (34.0-67.9) % Lymph % (Auto) (21.8-53.1) % [place] % (Auto) (5.3-12.2) % Eos % (Auto) (0.8-7.0) Baso % (Auto) (0.1-1.2) % Neut # (Auto) (1.78-5.38) K/mm3 Lymph # (Auto) (1.32-3.57) K/mm3 [place] # (Auto) (0.30-0.82) K/mm3 Eos # (Auto) (0.04-0.54) K/mm3 Baso # (Auto) (0.01-0.08) K/mm3 Manual Slide Review Sodium 152 H (136-145) mEq/L Potassium 3.6 (3.5-5.1) mEq/L Chloride 114 H (98-107) mEq/L Carbon Dioxide 25 (21-32) mEq/L Anion Gap 16.6 H (5-15) BUN 36 H (7-18) mg/dL Creatinine 1.2 (0.7-1.3) mg/dL Est Cr Clr Drug Dosing 34.72 mL/min Estimated GFR (MDRD) 58 (>60) mL/min BUN/Creatinine Ratio 30.0 H (14-18) Glucose 245 H (83-115) mg/dL POC Glucose 228 H (83-110) mg/dL Hemoglobin A1c (4.50-6.20) % Calcium 8.3 L (8.5-10.1) mg/dL Magnesium 2.3 (1.8-2.4) mg/dl Total Bilirubin (0.2-1.0) mg/dL AST (15-37) U/L ALT (16-63) U/L Alkaline Phosphatase (46-116) U/L Total Protein (6.4-8.2) g/dl Albumin (3.4-5.0) g/dl Globulin gm/dL Albumin/Globulin Ratio (1-2) Med Orders - Current: Current Medications Albuterol/Ipratropium (Duoneb 3.0-0.5 Mg/3 Ml) 3 ml NEB QIDRT [facility] Last Admin: 03/08/17 08:59 Dose: 3 ml Aspirin (Halfprin) 81 mg PO DAILY [facility] Last Admin: 03/08/17 09:10 Dose: 81 mg Dextrose/Water (Dextrose 50% In Water) 50 ml IVPUSH ASDIRECTED PRN PRN Reason: Hypoglycemia Enoxaparin Sodium (Lovenox) 40 mg SUBCUT DAILY [facility] Last Admin: 03/08/17 09:11 Dose: 40 mg Furosemide (Lasix) 20 mg PO BID [facility] Last Admin: 03/08/17 09:10 Dose: 20 mg Vancomycin HCl 1 gm/ Sodium (Chloride) 250 mls @ 167 mls/hr IV Q18H [facility] Last Admin: 03/08/17 02:56 Dose: 167 mls/hr Levofloxacin/Dextrose 750 mg/ (Premix) 150 mls @ 100 mls/hr IV Q48H [facility] Last Admin: 03/06/17 14:29 Dose: 100 mls/hr Dextrose/Water (Dextrose 5% In Water) 1,000 mls @ 100 mls/hr IV ASDIRECTED [facility] Last Admin: 03/08/17 09:53 Dose: 100 mls/hr Insulin Aspart (Novolog) 0 unit SUBCUT QIDACANDBED [facility] PRN Reason: Protocol Last Admin: 03/08/17 09:11 Dose: 2 units Memantine Hcl 14 Mg (Xr) 0 each PO DAILY [facility] Last Admin: 03/08/17 09:11 Dose: Not Given Prednisone (Prednisone) 40 mg PO DAILY [facility] Stop: 03/10/17 09:01 Last Admin: 03/08/17 09:10 Dose: 40 mg Prednisone (Prednisone) 30 mg PO DAILY [facility] Stop: 03/13/17 09:01 Prednisone (Prednisone) 20 mg PO DAILY [facility] Stop: 03/16/17 09:01 Prednisone (Prednisone) 10 mg PO DAILY [facility] Stop: 03/19/17 09:01 Saccharomyces Boulardii (Florastor) 250 mg PO BID [facility] Last Admin: 03/08/17 09:10 Dose: 250 mg Senna (Senna) 17.2 mg PO DAILY PRN PRN Reason: Constipation Sertraline HCl (Zoloft) 12.5 mg PO DAILY [facility] Last Admin: 03/08/17 09:10 Dose: 12.5 mg Simvastatin (Zocor) 20 mg PO BEDTIME [facility] Last Admin: 03/07/17 21:59 Dose: 20 mg Sodium Chloride (Saline Flush) 10 ml FLUSH ASDIRECTED PRN PRN Reason: Keep Vein Open Last Admin: 03/02/17 23:14 Dose: 10 ml Tamsulosin HCl (Flomax) 0.4 mg PO BEDTIME [facility] Last Admin: 03/07/17 21:59 Dose: 0.4 mg Vancomycin HCl (Pharmacy To Dose - Vancomycin) 0 dose .XX ASDIRECTED PRN PRN Reason: RX DOSE Discontinued Medications Acetaminophen (Tylenol) 975 mg PO NOW ONE Stop: 03/03/17 00:04 Last Admin: 03/03/17 00:32 Dose: Not Given Acetaminophen (Tylenol) 975 mg RECTAL NOW STA Stop: 03/03/17 00:26 Last Admin: 03/03/17 00:31 Dose: 975 mg Bisacodyl (Dulcolax) 10 mg RECTAL ONETIME ONE Stop: 03/03/17 15:16 Last Admin: 03/03/17 15:28 Dose: 10 mg Bisacodyl (Dulcolax) 10 mg RECTAL ONETIME ONE Stop: 03/07/17 05:01 Last Admin: 03/07/17 05:49 Dose: 10 mg Levofloxacin/Dextrose 750 mg/ (Premix) 150 mls @ 100 mls/hr IV ONETIME ONE Stop: 03/03/17 00:00 Last Admin: 03/02/17 23:07 Dose: 100 mls/hr Sodium Chloride (Normal Saline) 1,000 mls @ 1,000 mls/hr IV .BOLUS [facility] Last Admin: 03/02/17 23:07 Dose: 1,000 mls/hr Sodium Chloride (Normal Saline) 1,000 mls @ 150 mls/hr IV ASDIRECTED [facility] Dextrose/Water (Dextrose 5% In Water) 1,000 mls @ 70 mls/hr IV ASDIRECTED [facility] Last Admin: 03/03/17 23:46 Dose: 100 mls/hr Azithromycin 500 mg/ Sodium (Chloride) 250 mls @ 250 mls/hr IV Q24H [facility] Last Admin: 03/05/17 12:41 Dose: 250 mls/hr Ceftriaxone Sodium 1 gm/ (Sodium Chloride) 100 mls @ 200 mls/hr IV Q24H [facility] Last Admin: 03/05/17 12:41 Dose: 200 mls/hr Dextrose/Water (Dextrose 5% In Water) 1,000 mls @ 100 mls/hr IV ASDIRECTED [facility] Stop: 03/07/17 13:00 Last Admin: 03/07/17 09:03 Dose: 100 mls/hr Methylprednisolone Sodium Succinate (Solu-Medrol) 40 mg IVPUSH DAILY [facility] Last Admin: 03/07/17 09:09 Dose: 40 mg Oseltamivir Phosphate (Tamiflu) 30 mg PO DAILY [facility] Stop: 03/09/17 09:01 Last Admin: 03/07/17 09:05 Dose: 30 mg Oseltamivir Phosphate (Tamiflu) 75 mg PO DAILY [facility] Saccharomyces Boulardii (Florastor) 500 mg PO DAILY [facility] Last Admin: 03/07/17 09:06 Dose: 500 mg - Exam Quality Assessment: DVT prophylaxis General: no acute distress Neck: supple Lungs: Normal respiratory effort, Decreased breath sounds (mid to lower lobes). No: Rales, Rhonchi Cardiovascular: Regular Rate, Regular Rhythm, Murmurs (grade 1; very faint) Abdomen: bowel sounds present, soft, no tenderness (Male) Exam: Deferred Extremities: no edema, no calf tenderness Peripheral Pulses: 1+: Dorsalis Pedis (L), Dorsalis Pedis (R) Skin: warm, dry Psy/Mental Status: alert, other (end stage dementia; nonverbal but does smile at us today) - Problem List & Annotations (1) Pneumonia SNOMED Code(s): 071254586 Code(s): J18.9 - PNEUMONIA, UNSPECIFIED ORGANISM Status: Acute Priority: High Current Visit: Yes Qualifiers: Pneumonia type: aspiration pneumonia Laterality: right Lung location: middle lobe of lung (2) Hypoxia SNOMED Code(s): 096751714, 215409360 Code(s): R09.02 - HYPOXEMIA Status: Acute Priority: High Current Visit : Yes (3) Hypernatremia SNOMED Code(s): 67939129 Code(s): E87.0 - HYPEROSMOLALITY AND HYPERNATREMIA Status: Acute Priority : High Current Visit: Yes (4) Dehydration SNOMED Code(s): 96961234 Code(s): E86.0 - DEHYDRATION Status: Resolved Priority: High Current Visit: Yes (5) Elevated blood sugar SNOMED Code(s): 82000445 Code(s): R73.9 - HYPERGLYCEMIA, UNSPECIFIED Status: Acute Priority: High Current Visit: Yes - Problem List Review Problem List Initiated/Reviewed/Updated: Yes - My Orders Last 24 Hours: My Active Orders 03/07/17 10:24 POC Glucose [Blood Glucose Check, Bedside] [RC] ONETIME 03/07/17 21:00 Saccharomyces Boulardii [Florastor] 250 mg PO BID 03/08/17 09:00 predniSONE 40 mg PO DAILY 03/08/17 09:15 Dextrose 5% in Water 1,000 ml IV ASDIRECTED 03/08/17 13:00 SODIUM,NA [CHEM] Routine 03/08/17 19:00 VANCOMYCIN TROUGH [CHEM] Timed 03/08/17 Lunch Low Sodium [Sodium Restricted Diet] [DIET] 03/11/17 09:00 predniSONE 30 mg PO DAILY 03/14/17 09:00 predniSONE 20 mg PO DAILY 03/17/17 09:00 predniSONE 10 mg PO DAILY - Plan Plan:: Impression/Plan: Aspiration pneumonia- recurrent and likely chronic----much improved clinically today -CXR with right ML asymetric density, suspected to be old- I feel this is likely due to chronic aspiration pneumonia -Will change IV abx to Levaquin and Vancomycin as he was + for MRSA via PCR screening -DC solumedrol today; PO prednisone taper -Cont with O2 to keep sats >90% -RT, Nebs -Viral illness exposure/influenza at [facility]- flu screen is negative; tamiflu discontinued upon receipt of negative flu results -[employer] SCRE[employer] eval and tx; swallow-- diet was advanced yesterday afternoon; doing well thus far AMS, unclear etiology, likely hypernatremia accompanied by infection and hypoxia , resolved and at baseline chronic dementia Hypernatremia- fluctuant levels -cont to follow am labs -level worse today at 152 -will restart D5W -Plan recheck Na+ later today at 1300 -Cover elevated blood sugars with SSI PRN -Reviewed meds and case with Pharmacy, no medications should be contributing to this, renal function is acceptable. -Will discuss further POC with POA today Elevated blood sugars -Infection likely contributing; Solumedrol likely contributing; D5W infusion likely contributing -Will check A1C -SSI coverage Chronic: HTN- stable Hyperlipidemia Anxiety Dementia- baseline; nonverbal; nonambulatory Other: DVT/GI prophylaxis CM/SW for assistance with DC planning- back to NH when medically stable LOS likely >96 hours due to longer than expected course of recovery; cont [employer] SCRE[employer] evaluation for aspiration and diet advancement; hypernatremia/electrolyte correction. Patient is DNR/DNI at this time; POA is considering Comfort Care pending ongoing [employer] SCRE[employer]ST[employer]ER eval/swallowing recommendations.
[2017-03-08] MEDS: Levofloxacin/Dextrose 5%-Water 750 MG in Premix Bag 1 BAG IV SCH (14:06)
[2017-03-08] MEDS ORDERED: Insulin Isophane NPH, Human 100 Units/ML 10 ML Vial SUBCUT ONE (17:47)
[2017-03-08] MEDS: Tamsulosin 0.4 MG Cap.ER PO SCH (21:47)
[2017-03-08] MEDS: Simvastatin 20 MG Tab PO SCH (21:47)
[2017-03-08] MEDS: glipiZIDE 5 MG Tab.ER PO SCH (21:48)
[2017-03-08] MEDS ORDERED: glipiZIDE 5 MG Tab PO ONE (23:03)
[2017-03-08] MEDS ORDERED: Insulin Aspart 100 Units/ML 3 ML Pen SUBCUT ONE (23:04)
[2017-03-08] MEDS ORDERED: glipiZIDE 5 MG Tab.ER PO ONE (23:15)
[2017-03-09] MEDS ORDERED: Dextrose 5% in Water 250 ML IV ONE ×2 (04:04→04:06)
[2017-03-09] MEDS: Albuterol/Ipratropium 3.0-0.5 MG/3 ML Neb Soln NEB SCH (06:09)
[2017-03-09] MEDS: Insulin Aspart 100 Units/ML 3 ML Pen SUBCUT SCH ×2 (06:48→11:17)
[2017-03-09 08:04] VITALS: BP 126/71
[2017-03-09] MEDS ORDERED: Dextrose 5% in Water 500 ML IV SCH (08:15)
[2017-03-09] MEDS ORDERED: Dextrose 5% in Water 1,000 ML IV SCH (09:05)
[2017-03-09] MEDS: Sertraline 25 MG Tab PO SCH (10:08)
[2017-03-09] MEDS: Furosemide 20 MG Tab PO SCH (10:08)
[2017-03-09] MEDS: Aspirin 81 MG Tab.EC PO SCH (10:08)
[2017-03-09] MEDS: MEMANTINE HCL 14 MG PO SCH (10:09)
[2017-03-09] MEDS: glipiZIDE 5 MG Tab.ER PO SCH (10:09)
[2017-03-09] MEDS: Enoxaparin 40 MG/0.4 ML Syringe SUBCUT SCH (10:09)
[2017-03-09] MEDS: Saccharomyces Boulardii (Probiotic) 250 MG Cap PO SCH (10:09)
--- NOTE | 2017-03-09 10:16 | PCM.DCSUM1 ---
Discharge Summary - Hospital Course Free Text/Narrative:: [facility] with fever, cough, shortness of breath and low oxygen saturations. The jail had an outbreak of influenza last week and he was on tamiflu. For a couple days he has been more short of breath. 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 This evening he developed more of a cough, shortness of breath and his fever was 101. He was sent by ambulance. The patient is sleepy and he does not answer my questions. Patient is admitted for sepsis; likely pneumonia, mild CHF exacerbation. He was initially treated with Rocephin/Zithromax IV abx, D5W for hypernatremia with sodium level initially of 156. He was diuresed with IV lasix then to PO lasix. MRSA PCR returned +, he was switched to IV vancomycin and levaquin. [employer] was consulted for swallow evaluation for presumed aspiration PNA. BC negative; strep pneumon and mycoplasma negative; flu screening negative. Recommendations were NPO for a time being during his stay. Once he became more alert recommendations were advanced to pureed with honey thick liquids, he did well with this. CXR showed chronic RML changes, likely consistent with chronic aspiration pneumonia. He received intermittent D5W infusions for hypernatremia, once infusion stopped sodium would increase again. He was on solumedrol for PNA , transitioned to PO prednisone taper; this was dc'd as thought may be contributing to hypernatremia. Blood sugars were elevated and quite high when getting D5W infusions. A1C was obtained and was 9.3. He was started on SSI for coverage during his stay, will be dc'd on metformin BID with blood sugar checks BID. Case was reviewed with PCP Dr. Lopez today/day of discharge, who offers advice that sodium level is likely due to progressive dementia and will not be corrected with medical management. Patient will be discharged back to [facility] today; follow up with PCP, Dr. Lopez in one week. - Discharge Data Discharge Date: 03/09/17 (admit date 03/03/17) Discharge Disposition: DC/Tfer to [facility] Condition: Good - Discharge Diagnosis/Problem(s) (1) Pneumonia SNOMED Code(s): 003897354 ICD Code: J18.9 - PNEUMONIA, UNSPECIFIED ORGANISM Status: Acute Priority : High Current Visit: Yes Qualifiers: Pneumonia type: aspiration pneumonia Laterality: right Lung location: middle lobe of lung (2) Hypoxia SNOMED Code(s): 511051010, 015060452 ICD Code: R09.02 - HYPOXEMIA Status: Resolved Priority: High Current Visit: Yes (3) Hypernatremia SNOMED Code(s): 84216619 ICD Code: E87.0 - HYPEROSMOLALITY AND HYPERNATREMIA Status: Chronic Priority: High Current Visit: Yes (4) Dehydration SNOMED Code(s): 64588679 ICD Code: E86.0 - DEHYDRATION Status: Resolved Priority: High Current Visit: Yes (5) Dementia SNOMED Code(s): 85742918 ICD Code: F03.90 - UNSPECIFIED DEMENTIA WITHOUT BEHAVIORAL DISTURBANCE Status: Chronic Priority: High Current Visit: Yes Qualifiers: Dementia type: unspecified type Dementia behavioral disturbance: without behavioral disturbance Qualified Code(s): F03.90 - Unspecified dementia without behavioral disturbance (6) Diabetes mellitus type 2 in nonobese SNOMED Code(s): 882798724 ICD Code: E11.9 - TYPE 2 DIABETES MELLITUS WITHOUT COMPLICATIONS Status: Chronic Priority: High Current Visit: Yes - Patient Summary/Data Operative Procedure(s) Performed: None Complications: None Consults: Consultations 03/03/17 01:25 Consult to Speech Language Pathology [[employer] Evaluation and Treatment] [CONS] Routine Labs Pending at D/C: None Recommended Follow-up Testing/Procedures: Follow up in 1 week with PCP, Dr. Lopez Planned Operative Procedure(s) after DC: None Hospital Course: As above - Patient Instructions Diet: Pureed (honey thick liquids; aspiration precautions) Activity: As Tolerated Driving: Do Not Drive Showering/Bathing: May Shower Notify Provider of: Fever, Increased Pain, Nausea and/or Vomiting (shortness of breath, coughing) - Discharge Plan Prescriptions/Med Rec: metFORMIN [Glucophage XR] 500 mg PO BIDMEALS #60 tab.er Home Medications: Home Meds Acetaminophen [Tylenol] 650 mg PO DAILY PRN 05/29/14 [History] Aspirin [Ecotrin] 1 tab PO DAILY 05/29/14 [History] Lovastatin 40 mg PO BEDTIME 05/29/14 [History] Sertraline [Zoloft] 12.5 tab PO DAILY 05/29/14 [History] Tamsulosin [Flomax] 0.4 mg PO BEDTIME 05/29/14 [History] Ammonia Solution, Strong/MSM [Penetran + Plus 1.5%] 1 applic TOP BID PRN [History] Cranberry Extract [Cranberry] 1 tab PO BID 03/02/17 [History] Furosemide [Lasix] 20 mg PO BID 03/02/17 [History] Memantine HCl [Namenda XR] 14 mg PO DAILY 03/02/17 [History] Sennosides [Senna] 2 tab PO DAILY PRN 03/02/17 [History] metFORMIN [Glucophage XR] 500 mg PO BIDMEALS #60 tab.er 03/09/17 [Rx] Patient Handouts: Type 2 Diabetes Mellitus, Adult, Hypernatremia, [id number] , Hypoxemia, Sepsis, Adult, Heart Failure, [id number] Forms: ED Department Discharge Referrals: Rogelio Lopez MD [Primary Care Provider] - - Discharge Summary/Plan Comment DC Time >30 min.: Yes (40 min) - General Info Date of Service: 03/09/17 Admission Dx/Problem (Free Text: Admission Diagnosis/Problem Admission Diagnosis/Problem Pneumonia Patient is seen this morning; resting comfortably in bed. He is nonverbal and non-communicative but does not appear to be in pain/discomfort. He does smile at me today when I enter the room. Functional Status: Reports: pain controlled, tolerating diet, urinating ( incontinent). Denies: ambulating - Review of Systems General: Reports: No Symptoms HEENT: Reports: no symptoms Pulmonary: Reports: no symptoms. Denies: shortness of breath Cardiovascular: Reports: No Symptoms Neurological: Reports: Confusion (end stage dementia) Psychiatric: Reports: confusion (end stage dementia) - Patient Data Vitals - Most Recent: Last Vital Signs Temp 98.2 F 03/09/17 08:02 Pulse 93 03/09/17 08:02 Resp 16 03/09/17 08:02 BP 126/71 03/09/17 08:02 Pulse Ox 95 03/09/17 08:02 Weight - Most Recent: 116 lb 1.6 oz I&O - Last 24 hours: Intake & Output 03/08/17 03/09/17 03/09/17 22:59 06:59 14:59 Intake Total 1250 402 Balance 1250 402 Lab Results - Last 24 hrs: Laboratory Results - last 24 hr 03/08/17 03/08/17 03/08/17 Range/Units 11:24 11:24 14:52 WBC (4.23-9.07) K/mm3 RBC (4.63-6.08) M/mm3 Hgb (13.7-17.5) gm/L Hct (40.1-51.0) % MCV (79.0-92.2) fl MCH (25.7-32.2) pg MCHC (32.2-35.5) g/dl RDW Std Deviation (35.1-43.9) fL Plt Count (163-337) K/mm3 MPV (9.4-12.3) fl Neut % (Auto) (34.0-67.9) % Lymph % (Auto) (21.8-53.1) % [place] % (Auto) (5.3-12.2) % Eos % (Auto) (0.8-7.0) Baso % (Auto) (0.1-1.2) % Neut # (Auto) (1.78-5.38) K/mm3 Lymph # (Auto) (1.32-3.57) K/mm3 [place] # (Auto) (0.30-0.82) K/mm3 Eos # (Auto) (0.04-0.54) K/mm3 Baso # (Auto) (0.01-0.08) K/mm3 Sodium 146 H (136-145) mEq/L Potassium (3.5-5.1) mEq/L Chloride (98-107) mEq/L Carbon Dioxide (21-32) mEq/L Anion Gap (5-15) BUN (7-18) mg/dL Creatinine (0.7-1.3) mg/dL Est Cr Clr Drug Dosing mL/min Estimated GFR (MDRD) (>60) mL/min BUN/Creatinine Ratio (14-18) Glucose 539 H 629 H* (83-115) mg/dL POC Glucose (83-110) mg/dL Calcium (8.5-10.1) mg/dL Magnesium (1.8-2.4) mg/dl Vancomycin Trough (10.0-20.0) 03/08/17 03/08/17 03/09/17 Range/Units 19:05 21:53 03:59 WBC (4.23-9.07) K/mm3 RBC (4.63-6.08) M/mm3 Hgb (13.7-17.5) gm/L Hct (40.1-51.0) % MCV (79.0-92.2) fl MCH (25.7-32.2) pg MCHC (32.2-35.5) g/dl RDW Std Deviation (35.1-43.9) fL Plt Count (163-337) K/mm3 MPV (9.4-12.3) fl Neut % (Auto) (34.0-67.9) % Lymph % (Auto) (21.8-53.1) % [place] % (Auto) (5.3-12.2) % Eos % (Auto) (0.8-7.0) Baso % (Auto) (0.1-1.2) % Neut # (Auto) (1.78-5.38) K/mm3 Lymph # (Auto) (1.32-3.57) K/mm3 [place] # (Auto) (0.30-0.82) K/mm3 Eos # (Auto) (0.04-0.54) K/mm3 Baso # (Auto) (0.01-0.08) K/mm3 Sodium (136-145) mEq/L Potassium (3.5-5.1) mEq/L Chloride (98-107) mEq/L Carbon Dioxide (21-32) mEq/L Anion Gap (5-15) BUN (7-18) mg/dL Creatinine (0.7-1.3) mg/dL Est Cr Clr Drug Dosing mL/min Estimated GFR (MDRD) (>60) mL/min BUN/Creatinine Ratio (14-18) Glucose 549 H (83-115) mg/dL POC Glucose 297 H (83-110) mg/dL Calcium (8.5-10.1) mg/dL Magnesium (1.8-2.4) mg/dl Vancomycin Trough 13.0 (10.0-20.0) 03/09/17 03/09/17 03/09/17 Range/Units 06:34 07:28 07:28 WBC 9.27 H (4.23-9.07) K/mm3 RBC 5.11 (4.63-6.08) M/mm3 Hgb 14.3 (13.7-17.5) gm/L Hct 43.8 (40.1-51.0) % MCV 85.7 (79.0-92.2) fl MCH 28.0 (25.7-32.2) pg MCHC 32.6 (32.2-35.5) g/dl RDW Std Deviation 41.5 (35.1-43.9) fL Plt Count 139 L (163-337) K/mm3 MPV 12.9 H (9.4-12.3) fl Neut % (Auto) 74.4 H (34.0-67.9) % Lymph % (Auto) 15.4 L (21.8-53.1) % [place] % (Auto) 9.5 (5.3-12.2) % Eos % (Auto) 0.2 L (0.8-7.0) Baso % (Auto) 0.1 (0.1-1.2) % Neut # (Auto) 6.89 H (1.78-5.38) K/mm3 Lymph # (Auto) 1.43 (1.32-3.57) K/mm3 [place] # (Auto) 0.88 H (0.30-0.82) K/mm3 Eos # (Auto) 0.02 L (0.04-0.54) K/mm3 Baso # (Auto) 0.01 (0.01-0.08) K/mm3 Sodium 150 H (136-145) mEq/L Potassium 3.4 L (3.5-5.1) mEq/L Chloride 112 H (98-107) mEq/L Carbon Dioxide 26 (21-32) mEq/L Anion Gap 15.4 H (5-15) BUN 34 H (7-18) mg/dL Creatinine 1.2 (0.7-1.3) mg/dL Est Cr Clr Drug Dosing 34.13 mL/min Estimated GFR (MDRD) 58 (>60) mL/min BUN/Creatinine Ratio 28.3 H (14-18) Glucose 326 H (83-115) mg/dL POC Glucose 317 H (83-110) mg/dL Calcium 8.3 L (8.5-10.1) mg/dL Magnesium 2.3 (1.8-2.4) mg/dl Vancomycin Trough (10.0-20.0) Med Orders - Current: Current Medications Aspirin (Halfprin) 81 mg PO DAILY [facility] Last Admin: 03/08/17 09:10 Dose: 81 mg Dextrose/Water (Dextrose 50% In Water) 50 ml IVPUSH ASDIRECTED PRN PRN Reason: Hypoglycemia Enoxaparin Sodium (Lovenox) 40 mg SUBCUT DAILY [facility] Last Admin: 03/08/17 09:11 Dose: 40 mg Furosemide (Lasix) 20 mg PO BID [facility] Last Admin: 03/08/17 21:47 Dose: 20 mg Glipizide (Glucotrol Xl) 5 mg PO BID [facility] Last Admin: 03/08/17 21:48 Dose: 5 mg Vancomycin HCl 1 gm/ Sodium (Chloride) 250 mls @ 167 mls/hr IV Q18H [facility] Last Admin: 03/08/17 20:36 Dose: 167 mls/hr Levofloxacin/Dextrose 750 mg/ (Premix) 150 mls @ 100 mls/hr IV Q48H [facility] Last Admin: 03/08/17 14:06 Dose: 100 mls/hr Dextrose/Water (Dextrose 5% In Water) 1,000 mls @ 1,997.78 mls/hr IV ASDIRECTED [facility] Insulin Aspart (Novolog) 0 unit SUBCUT QIDACANDBED [facility] PRN Reason: Protocol Last Admin: 03/09/17 06:48 Dose: 4 units Memantine Hcl 14 Mg (Xr) 0 each PO DAILY [facility] Last Admin: 03/08/17 09:11 Dose: Not Given Saccharomyces Boulardii (Florastor) 250 mg PO BID [facility] Last Admin: 03/08/17 21:48 Dose: 250 mg Senna (Senna) 17.2 mg PO DAILY PRN PRN Reason: Constipation Sertraline HCl (Zoloft) 12.5 mg PO DAILY [facility] Last Admin: 03/08/17 09:10 Dose: 12.5 mg Simvastatin (Zocor) 20 mg PO BEDTIME [facility] Last Admin: 05/17/17 21:47 Dose: 20 mg Sodium Chloride (Saline Flush) 10 ml FLUSH ASDIRECTED PRN PRN Reason: Keep Vein Open Last Admin: 03/02/17 23:14 Dose: 10 ml Tamsulosin HCl (Flomax) 0.4 mg PO BEDTIME [facility] Last Admin: 03/08/17 21:47 Dose: 0.4 mg Vancomycin HCl (Pharmacy To Dose - Vancomycin) 0 dose .XX ASDIRECTED PRN PRN Reason: RX DOSE Discontinued Medications Acetaminophen (Tylenol) 975 mg PO NOW ONE Stop: 03/03/17 00:04 Last Admin: 03/03/17 00:32 Dose: Not Given Acetaminophen (Tylenol) 975 mg RECTAL NOW STA Stop: 03/03/17 00:26 Last Admin: 03/03/17 00:31 Dose: 975 mg Albuterol/Ipratropium (Duoneb 3.0-0.5 Mg/3 Ml) 3 ml NEB QIDRT [facility] Last Admin: 03/09/17 06:09 Dose: 3 ml Bisacodyl (Dulcolax) 10 mg RECTAL ONETIME ONE Stop: 03/03/17 15:16 Last Admin: 03/03/17 15:28 Dose: 10 mg Bisacodyl (Dulcolax) 10 mg RECTAL ONETIME ONE Stop: 03/07/17 05:01 Last Admin: 03/07/17 05:49 Dose: 10 mg Glipizide (Glucotrol) 5 mg PO ONETIME ONE Stop: 03/09/17 22:33 Glipizide (Glucotrol Xl) 5 mg PO ONETIME ONE Stop: 03/08/17 23:16 Last Admin: 03/08/17 23:21 Dose: 5 mg Levofloxacin/Dextrose 750 mg/ (Premix) 150 mls @ 100 mls/hr IV ONETIME ONE Stop: 03/03/17 00:00 Last Admin: 03/02/17 23:07 Dose: 100 mls/hr Sodium Chloride (Normal Saline) 1,000 mls @ 1,000 mls/hr IV .BOLUS CAROLYN Last Admin: 03/02/17 23:07 Dose: 1,000 mls/hr Sodium Chloride (Normal Saline) 1,000 mls @ 150 mls/hr IV ASDIRECTED CAROLYN Dextrose/Water (Dextrose 5% In Water) 1,000 mls @ 70 mls/hr IV ASDIRECTED [facility] Last Admin: 03/03/17 23:46 Dose: 100 mls/hr Azithromycin 500 mg/ Sodium (Chloride) 250 mls @ 250 mls/hr IV Q24H [facility] Last Admin: 03/05/17 12:41 Dose: 250 mls/hr Ceftriaxone Sodium 1 gm/ (Sodium Chloride) 100 mls @ 200 mls/hr IV Q24H [facility] Last Admin: 03/05/17 12:41 Dose: 200 mls/hr Dextrose/Water (Dextrose 5% In Water) 1,000 mls @ 100 mls/hr IV ASDIRECTED [facility] Stop: 03/07/17 13:00 Last Admin: 03/07/17 09:03 Dose: 100 mls/hr Dextrose/Water (Dextrose 5% In Water) 1,000 mls @ 100 mls/hr IV ASDIRECTED [facility] Last Admin: 03/08/17 09:53 Dose: 100 mls/hr Dextrose/Water (Dextrose 5% In Water) 250 mls @ 999 mls/hr IV ONETIME ONE Stop: 03/09/17 04:21 Last Admin: 03/09/17 04:15 Dose: 999 mls/hr Dextrose/Water (Dextrose 5% In Water) 500 mls @ 999 mls/hr IV ASDIRECTED [facility] Insulin Aspart (Novolog) 10 unit SUBCUT ONETIME ONE Stop: 03/09/17 22:43 Insulin Aspart (Novolog) 10 unit SUBCUT ONETIME ONE Stop: 03/08/17 23:05 Last Admin: 03/08/17 23:10 Dose: 10 unit Insulin Human NPH (Novolin N) 12 unit SUBCUT ONETIME ONE Stop: 03/08/17 17:48 Last Admin: 03/08/17 18:11 Dose: 12 units Insulin Human Regular (Humulin R) 12 unit SUBCUT ASDIRECTED ONE Stop: 03/09/17 17:46 Methylprednisolone Sodium Succinate (Solu-Medrol) 40 mg IVPUSH DAILY [facility] Last Admin: 03/07/17 09:09 Dose: 40 mg Oseltamivir Phosphate (Tamiflu) 30 mg PO DAILY [facility] Stop: 03/09/17 09:01 Last Admin: 03/07/17 09:05 Dose: 30 mg Oseltamivir Phosphate (Tamiflu) 75 mg PO DAILY [facility] Prednisone (Prednisone) 40 mg PO DAILY [facility] Stop: 03/10/17 09:01 Last Admin: 03/08/17 09:10 Dose: 40 mg Prednisone (Prednisone) 30 mg PO DAILY [facility] Stop: 03/13/17 09:01 Prednisone (Prednisone) 20 mg PO DAILY [facility] Stop: 03/16/17 09:01 Prednisone (Prednisone) 10 mg PO DAILY [facility] Stop: 03/19/17 09:01 Saccharomyces Boulardii (Florastor) 500 mg PO DAILY [facility] Last Admin: 03/07/17 09:06 Dose: 500 mg - Exam Quality Assessment: Reports: DVT prophylaxis General: Reports: alert, no acute distress HEENT: Reports: Pupils equal, Pupils reactive, EOMI Neck: Reports: supple Lungs: Reports: Clear to auscultation, Normal respiratory effort, Decreased breath sounds (to bases) Cardiovascular: Reports: Regular Rate, Regular Rhythm, Murmurs (grade 1-2 systolic murmur noted) Abdomen: Reports: bowel sounds present, soft, no tenderness, no distension (Male) Exam: Deferred Rectal (Males) Exam: Deferred Extremities: Reports: no edema, no calf tenderness Skin: Reports: warm, dry Neurological: Reports: other (end stage dementia; nonverbal) Psy/Mental Status: Reports: other (end stage dementia; nonverbal but does smile at me today) *Q Meaningful Use (DIS) - VTE *Q VTE Criteria *Q: - Stroke *Q Stroke Criteria *Q: - AMI *Q AMI Criteria *Q:
[2017-03-09] MEDS ORDERED: Sodium Chloride 0.9% 10 ML Syringe FLUSH PRN (10:57)
[2017-03-09] MEDS ORDERED: Insulin Regular, Human 100 Units/ML 3 ML Vial SUBCUT ONE ×2 (17:42→17:45)
[2017-03-09] MEDS ORDERED: glipiZIDE 5 MG Tab PO ONE (22:32)
[2017-03-09] MEDS ORDERED: Insulin Aspart 100 Units/ML 3 ML Pen SUBCUT ONE (22:42)
--- NOTE | 2017-03-10 15:05 | PCM.SN ---
- Free Text/Narrative Note: Yesterday prior to patient discharge discussion with POA; Didier Muse regarding code status. POA wishes comfort care at this time for patient, wishes no further hospitalizations and to keep patient comfortable at this time, cont current medications, treatments and orders at this time. I will relay this change in code status to pt's PCP, Dr. Lopez and to Correction.
[2017-03-11] MEDS ORDERED: predniSONE 10 MG Tab PO SCH (09:00)
[2017-03-14] MEDS ORDERED: predniSONE 20 MG Tab PO SCH (09:00)
[2017-03-17] MEDS ORDERED: predniSONE 10 MG Tab PO SCH (09:00)
== END 2017-03-09 11:30 | DRG 871 ==
LOC: JD.ED 22:14 → JD.ICU 03-03 00:23 → JD.MS 03-03 19:59
PROVIDERS: ADMIT Internal Medicine Cardiovascular Disease; ATTEND Internal Medicine Cardiovascular Disease
DX: A41.9 Sepsis, unspecified organism (principal); J18.9 Pneumonia, unspecified organism; J69.0 Pneumonitis due to inhalation of food and vomit; E87.1 Hypo-osmolality and hyponatremia; I10 Essential (primary) hypertension; E78.00 Pure hypercholesterolemia, unspecified; E87.0 Hyperosmolality and hypernatremia; R09.02 Hypoxemia; A49.02 Methicillin resistant Staphylococcus aureus infection, unspecified site; R41.82 Altered mental status, unspecified; E86.0 Dehydration; E11.9 Type 2 diabetes mellitus without complications; I11.0 Hypertensive heart disease with heart failure; I50.9 Heart failure, unspecified; E78.5 Hyperlipidemia, unspecified; K59.09 Other constipation; K21.9 Gastro-esophageal reflux disease without esophagitis; F32.9 Major depressive disorder, single episode, unspecified; F41.9 Anxiety disorder, unspecified; G47.00 Insomnia, unspecified; D50.9 Iron deficiency anemia, unspecified; Z79.82 Long term (current) use of aspirin; Z79.899 Other long term (current) drug therapy; F03.90 Unspecified dementia, unspecified severity, without behavioral disturbance, psychotic disturbance, mood disturbance, and anxiety; Z66 Do not resuscitate
CPT/HCPCS: 36415; 71010; 80053; 81001; 83605; 85025; 87040 ×2; 87804 ×2; 96365; 99285; J1956; J7040; J7050; P9612; 80048; 80202; 82947; 82962; 83036; 83735; 83880; 84295; 86140; 86738; 87486; 87581; 87633; 87641; 87798; 87899; 92526-GN; 92610-GN; 94640-76; 94664; 94760; 94761; A9270-GY; J0456; J0696; J1650; J1815-GY; J2920; J3370; J7030; J7060